=== PATIENT | male | born 1960 | race Caucasian/White ===

== ENCOUNTER → 2016-07-02 | Outpatient (CLI) | payer OTHER ==
[~2016-07-02] MED LIST: ALBUAER2 INH; CHOL2000 PO; CYAN10005 IM; DULO60CA44 PO; HYDR-4079 PO; HYDR-4383 PO; MULT-506 PO; PRENTAB26 PO; TIZA4CAP PO; TRAM-453 PO; VNTHFA/IN INH
[2016-07-02 09:10] LABS: HEMATOCRIT 35.4 % (42-52)
[2016-07-02 09:24] LABS: ESTIMATED AVERAGE GLUCOSE 131 mg/dl; HA1C FLAG Normal (Normal)
[2016-07-02 09:28] LABS: BLOOD UREA NITROGEN 11 mg/dl (7-18); BUN/CREATININE RATIO 14.1 (10-20); CREATININE 0.75 mg/dl (0.60-1.40)
--- NOTE | 2016-07-02 09:31 | DIAGNOSTIC IMAGING REPORT ---
KUB HISTORY: Q62.5 Ureteral [id number] COMPARISON: IVP 10/18/2015. FINDINGS: The bowel gas pattern is unremarkable. There are no dilated loops of small bowel to suggest an obstruction. No renal calculi. No ureteral calculi. Calcifications in the deep pelvis likely represent phleboliths. These are not significantly changed. Suture material left upper quadrant. Degenerative changes within the lumbar spine. Stable 3 mm calcification within the upper pole of the left kidney. No definite right renal calculi. Of note, the right renal shadow is partially obscured by overlying bowel gas. No pneumoperitoneum or pneumatosis. IMPRESSION: Stable left-sided nephrolithiasis. No definite right renal or ureteral calculi. Electronically signed by: Christian Kaye M.D. 07/02/2016 9:29 AM Dictated Date/Time: 07/02/2016 9:26 AM
[2016-07-02 09:38] LABS: PROSTATE SPECIFIC ANTIGEN 0.394 ng/ml (0.000-4.000)
== END | disposition home or self-care (01) ==
LOC: C.RAD 08:49
PROVIDERS: ATTEND Urology
DX: Q62.5 Duplication of ureter (principal); R68.82 Decreased libido; R94.6 Abnormal results of thyroid function studies; R35.8 Other polyuria; N20.0 Calculus of kidney

== ENCOUNTER → 2016-07-08 | Day surgery (SDC) | payer OTHER ==
[2016-07-02 15:00] VITALS: Ht 160 cm; Wt 90.9 kg
[~2016-07-08] VITALS: Ht 160 cm; Wt 90.9 kg
[~2016-07-08] MED LIST changes: -ALBUAER2 INH; -CHOL2000 PO; -CYAN10005 IM; -HYDR-4383 PO; +LIDOCAINE HCL 2% 2 ML VIAL (20MG/ML) ONE; -MULT-506 PO; +PROPOFOL IV EMULSION 10 MG/ML 20 ML VIAL IV ONE
--- NOTE | 2016-07-08 10:29 | Endo History and Physical ---
History & Physical Date of Service: Jul 08, 2016. Chief Complaint: Screening, Hx lung ca Referring Physician: Efraín Sheehan History of Present Illness 56 yo CM who presents for screening colonoscopy. Past Medical History Arthritis, Cancer, Sleep Apnea, COPD, Other Past Surgical History Hx Cardiac Surgery: No Hx Internal Defibrillator: No Hx Pacemaker: No Hx Abdominal Surgery: Yes (GASTRIC BYPASS, HERNIA REPAIR) Hx of Implantable Prosthesis: No Hx Post-Op Nausea and Vomiting: No Hx Cancer Surgery: Yes (RT LOBES X2 REMOVED) Hx Thoracic Surgery: No Hx Orthopedic: Yes (RT TKA, L/R CTR, RT KNEE SCOPES) Hx Urinary Tract Surgery: No Family History Colon CA, Esophogeal CA Social History Smoking Status: Former Smoker Hx Substance Use: No Hx Alcohol Use: No Allergies Coded Allergies: Shellfish (Verified Allergy, Severe, ANAPHYLAXIS, 07/02/16) Oxycodone (Verified Adverse Reaction, Unknown, hallucinations, 07/02/16) Current Medications Reported Home Medications Medications Dose Route/Sig Max Daily Dose Days Date Category Vitamin (Prenat Multivit/Dolores/Iron/Folic Ac) Tab 1 Tab PO DAILY 07/08/16 Reported Ventolin Hfa (Albuterol) 200 Puffs/32111 Mcg Aers 2-4 Puffs INH Q6H PRN 07/02/16 Reported Zanaflex (Tizanidine HCl) 4 Mg Cap 4 Mg PO HS 07/02/16 Reported Cymbalta (Duloxetine Hcl) 60 Mg Cap 1 Cap PO QAM 12/26/15 Reported Ultram (Tramadol Hcl) 50 Mg Tab 50 Mg PO BID PRN 08/01/14 Reported Vital Signs Weight (Kilograms): 90.91 Height (Feet): 5 Height (Inches): 3 Date Time Temp Pulse Resp B/P Pulse Ox O2 Delivery O2 Flow Rate FiO2 07/08/16 09:39 36.9 74 16 126/85 99 Room Air Physical Exam General Appearance: WD/WN, no apparent distress Respiratory/Chest: Auscultation: breath sounds normal Cardiovascular: Heart Auscultation: RRR Abdomen: Bowel Sounds: normal Inspection & Palpation: soft, non-distended, no tenderness, guarding & rebound Assessment and Plan Assessment: 56 yo CM who presents for screening colonoscopy. Plan: Proceed with colonoscopy.
--- NOTE | 2016-07-08 11:01 | GI REPORT ---
Procedure Date: 07/08/2016 10:11 AM Procedure: Colonoscopy Indications: Screening for colorectal malignant neoplasm Medicines: Monitored Anesthesia Care Complications: No immediate complications. Estimated Blood Loss: Estimated blood loss: none. Procedure: Pre-Anesthesia Assessment: - Prior to the procedure, a History and Physical was performed, and patient medications and allergies were reviewed. The patient's tolerance of previous anesthesia was also reviewed. The risks and benefits of the procedure and the sedation options and risks were discussed with the patient. All questions were answered, and informed consent was obtained. Prior Anticoagulants: The patient has taken no previous anticoagulant or antiplatelet agents. ASA Grade Assessment: III - A patient with severe systemic disease. After reviewing the risks and benefits, the patient was deemed in satisfactory condition to undergo the procedure. After I obtained informed consent, the scope was passed under direct vision. Throughout the procedure, the patient's blood pressure, pulse, and oxygen saturations were monitored continuously. The Scope was introduced through the anus and advanced to the cecum, identified by appendiceal orifice and ileocecal valve. The colonoscopy was performed without difficulty. The patient tolerated the procedure well. The quality of the bowel preparation was good. The terminal ileum, ileocecal valve, appendiceal orifice, and rectum were photographed. Findings: A 12 mm polyp was found in the ascending colon. The polyp was sessile. The polyp was removed with a piecemeal technique using a hot snare. Resection was complete, and retrieval was complete. To close a defect after polypectomy, one hemostatic clip was successfully placed (MR conditional). There was no bleeding at the end of the procedure. Multiple small-mouthed diverticula were found in the sigmoid colon. A 4 mm polyp was found in the rectum. The polyp was sessile. The polyp was removed with a hot snare. Resection and retrieval were complete. Impression: - One 12 mm polyp in the ascending colon, removed piecemeal using a hot snare. Resected and retrieved. Clip (MR conditional) was placed. - Diverticulosis in the sigmoid colon. - One 4 mm polyp in the rectum, removed with a hot snare. Resected and retrieved. Recommendation: - Resume previous diet. - Continue present medications. - Repeat colonoscopy for surveillance based on pathology results. - Return to primary care physician as previously scheduled. Nadeem Ho, 07/08/2016 11:00:48 AM This report has been signed electronically. Note Initiated On: 07/08/2016 10:11 AM
--- NOTE | 2016-07-08 11:02 | Discharge Instructions ---
Endoscopy Patient Instructions Date / Procedure(s) Performed Jul 08, 2016. Colonoscopy Allergy Information Coded Allergies: Shellfish (Verified Allergy, Severe, ANAPHYLAXIS, 07/02/16) Oxycodone (Verified Adverse Reaction, Unknown, hallucinations, 07/02/16) Discharge Date / Findings Jul 08, 2016. Colon polyps Diverticulosis Medication Instructions OK to resume all medications today as prescribed. Reported Home Medications Medications Dose Route/Sig Max Daily Dose Days Date Category Vitamin (Prenat Multivit/Keith/Iron/Folic Ac) Tab 1 Tab PO DAILY 07/08/16 Reported Ventolin Hfa (Albuterol) 200 Puffs/46630 Mcg Aers 2-4 Puffs INH Q6H PRN 07/02/16 Reported Zanaflex (Tizanidine HCl) 4 Mg Cap 4 Mg PO HS 07/02/16 Reported Cymbalta (Duloxetine Hcl) 60 Mg Cap 1 Cap PO QAM 12/26/15 Reported Ultram (Tramadol Hcl) 50 Mg Tab 50 Mg PO BID PRN 08/01/14 Reported Provider Instructions Activity Restrictions - No exercising or heavy lifting for 24 hours. - Do not drink alcohol the day of the procedure. - Do not drive a car or operate machinery until the day after the procedure. - Do not make any important decisions or sign important papers in 24 hours after the procedure. Following Day: - Return to full activity which may include returning to work/school. Diet Start your diet with liquids and light foods (jello, soup, juice, toast). Then eat your usual diet if not nauseated. Treatment For Common After Affects For mild abdominal pain, bloating, or excessive gas: - Rest - Eat lightly - Lie on right side Follow-Up Information Follow-up with Efraín Sheehan as scheduled Anesthesia Information What You Should Know You have had a procedure that required some medicine to reduce anxiety and discomfort. This treatment is called moderate sedation. After receiving the treatment, you may be sleepy, but you will be able to breathe on your own. The effects of the treatment may last for several hours. Follow these instructions along with Activity/Diet recommendations noted above: * Do NOT do anything where dizziness or clumsiness would be dangerous. * Rest quietly at home today, then you can be up and about tomorrow. * Have a responsible person stay with you the rest of today. * You may have had an I.V. today. If so, you may take the dressing off later today. Recommendations Call your doctor if: * Trouble breathing * Continuous vomiting for more than 24 hours * Temperature above 101 degrees * Severe abdominal pain or bloating * Pain not relieved by pain medicine ordered * There is increased drainage or redness from any incision * A large amount of rectal bleeding greater than 2-3 tablespoons. (If you had a polyp/s removed or have hemorrhoids, a small amount of blood - from the rectum is to be expected.) * You have any unanswered questions or concerns. IN THE EVENT OF A SERIOUS EMERGENCY, GO TO THE NEAREST EMERGENCY ROOM Your discharge instructions were prepared by provider Nadeem Ho. Patient Instructions Signature Page Efraín Mae Patient (or Guardian) Signature/Date: I have read and understand the instructions given to me by my caregivers. Caregiver/RN/Doctor Signature/Date: The above-named patient and/or guardian has received patient instructions on this date. + Original Patient Signature Page (only) stays with chart. Please make copy for patient.
[2016-07-08 11:35] VITALS: BP 128/68; PULSE 73; O2SAT 100
--- NOTE | 2016-07-08 11:54 | Anesthesiology Progress Note ---
Anesthesia Post Op Note Date & Time Jul 08, 2016 at 11:54 Vital Signs Pain Intensity: 0 Vital Signs Past 12 Hours Date Time Temp Pulse Resp B/P Pulse Ox O2 Delivery O2 Flow Rate FiO2 07/08/16 11:35 73 18 128/68 100 Room Air 07/08/16 11:20 70 18 112/85 100 Room Air 07/08/16 11:05 68 18 116/65 100 Room Air 07/08/16 09:39 36.9 74 16 126/85 99 Room Air Notes Mental Status: alert / awake / arousable, participated in evaluation Pt Amnestic to Procedure: Yes Nausea / Vomiting: adequately controlled Pain: adequately controlled Airway Patency, RR, SpO2: stable & adequate BP & HR: stable & adequate Hydration State: stable & adequate Anesthetic Complications: no major complications apparent
== END | disposition home or self-care (01) ==
LOC: C.GI 09:08
PROVIDERS: ATTEND Internal Medicine
DX: Z12.11 Encounter for screening for malignant neoplasm of colon (principal); D12.2 Benign neoplasm of ascending colon; K62.1 Rectal polyp; K57.30 Diverticulosis of large intestine without perforation or abscess without bleeding; Z85.118 Personal history of other malignant neoplasm of bronchus and lung; Z85.01 Personal history of malignant neoplasm of esophagus; Z80.0 Family history of malignant neoplasm of digestive organs; Z98.84 Bariatric surgery status; G47.30 Sleep apnea, unspecified; Z87.891 Personal history of nicotine dependence; J44.9 Chronic obstructive pulmonary disease, unspecified

== ENCOUNTER → 2016-07-16 | Day surgery (SDC) | payer OTHER ==
[~2016-07-16] VITALS: Ht 162.6 cm; Wt 93.0 kg
[~2016-07-16] MED LIST changes: +COSYNTROPIN INJ 0.25 MCG in SYRINGE 4 ML IV SCH; -LIDOCAINE HCL 2% 2 ML VIAL (20MG/ML) ONE; -PROPOFOL IV EMULSION 10 MG/ML 20 ML VIAL IV ONE
[2016-07-16 07:45] VITALS: BP 132/79; PULSE 72; TEMP 36.8; O2SAT 97; Ht 162.6 cm; Wt 93.0 kg
[2016-07-16 09:12] VITALS: BP 129/77; PULSE 65; TEMP 36.7; O2SAT 98
== END | disposition home or self-care (01) ==
LOC: C.MTU 07:27
PROVIDERS: ATTEND Internal Medicine Endocrinology, Diabetes & Metabolism
DX: R53.83 Other fatigue (principal)

== ENCOUNTER → 2016-10-08 | Outpatient (CLI) | payer OTHER ==
[~2016-10-08] MED LIST changes: -COSYNTROPIN INJ 0.25 MCG in SYRINGE 4 ML IV SCH
--- NOTE | 2016-10-08 11:49 | DIAGNOSTIC IMAGING REPORT ---
LEFT KNEE 1 OR 2 VIEWS ROUTINE CLINICAL HISTORY: Knee pain. COMPARISON: Leg length study July 12, 2013. FINDINGS: Alignment of left knee is anatomic. There is no fracture or joint effusion. Chondrocalcinosis is noted within the menisci. There is minimal joint space narrowing. IMPRESSION: 1. Minimal osteoarthritis of the left knee. 2. Chondrocalcinosis within the menisci. Electronically signed by: Zoran Pierson M.D. 10/08/2016 11:48 AM Dictated Date/Time: 10/08/2016 11:46 AM
--- NOTE | 2016-10-08 11:52 | DIAGNOSTIC IMAGING REPORT ---
RIGHT KNEE 1 OR 2 VIEWS ROUTINE CLINICAL HISTORY: Right knee pain. COMPARISON STUDY: Right knee 11/06/2015. FINDINGS: There is a right total knee arthroplasty. The hardware appears intact. No fracture or dislocation. No abnormal periprosthetic lucency. The bones are osteopenic. No significant knee effusion. Infrapatellar soft tissue swelling. IMPRESSION: 1. Mild nonspecific infrapatellar soft tissue swelling. 2. Right total knee arthroplasty. The hardware appears intact. 3. No fractures. Electronically signed by: Christian Kaye M.D. 10/08/2016 11:51 AM Dictated Date/Time: 10/08/2016 11:50 AM
--- NOTE | 2016-10-08 11:56 | DIAGNOSTIC IMAGING REPORT ---
CHEST 2 VIEWS ROUTINE CLINICAL HISTORY: Lung cancer. COMPARISON STUDY: Chest radiograph February 15, [address] May 28, 2016. FINDINGS: There are stable postoperative findings consistent with a right upper lobectomy. Expected right hemithorax loss is unchanged. There is no consolidation. There is no evidence of pulmonary edema. Cardiac size is normal. Mediastinal contours are unremarkable. No pneumothorax or pleural effusion is present. IMPRESSION: No acute cardiopulmonary findings. Stable postoperative findings consistent with a right upper lobectomy. Electronically signed by: Zoran Pierson M.D. 10/08/2016 11:55 AM Dictated Date/Time: 10/08/2016 11:54 AM
[2016-10-08 12:07] LABS: BASO % 0.5 %; BASO ABS # 0.03 K/uL (0-0.2); COMPLETE YES; HEMATOCRIT 36.4 % (42-52); IG% 0.2 %; LYMPH % 44.9 %; LYMPH ABS # 2.56 K/uL (1.2-3.4); MEAN CELL VOLUME 78.1 fL (80-100); MEAN CORPUSCULAR HEMOGLOBIN 24.5 pg (25-34); MEAN CORPUSCULAR HGB CONC 31.3 g/dl (32-36); MEAN PLATELET VOLUME 8.3 fL (7.4-10.4); MONO % 8.6 %; NEUT % 41.8 %; PLATELET COUNT 336 K/uL (130-400); RED BLOOD COUNT 4.66 M/uL (4.7-6.1)
[2016-10-08 12:16] LABS: ALT/SGPT 25 U/L (12-78); AST/SGOT 19 U/L (15-37); BLOOD UREA NITROGEN 11 mg/dl (7-18); CALCIUM 9.1 mg/dl (8.5-10.1); CARBON DIOXIDE 31 mmol/L (21-32); CHLORIDE 107 mmol/L (98-107); CREATININE 0.69 mg/dl (0.60-1.40); GLUCOSE 100 mg/dl (70-99); POTASSIUM 4.2 mmol/L (3.5-5.1); SODIUM 141 mmol/L (136-145)
[2016-10-08 12:19] LABS: ALB/GLOB RATIO 1.2 (0.9-2); ALKALINE PHOSPHATASE 122 U/L (45-117)
== END | disposition home or self-care (01) ==
LOC: C.RAD 10:25
DX: C34.11 Malignant neoplasm of upper lobe, right bronchus or lung (principal); M23.51 Chronic instability of knee, right knee; M17.10 Unilateral primary osteoarthritis, unspecified knee; E29.1 Testicular hypofunction

== ENCOUNTER → 2016-12-10 | Outpatient (CLI) | payer OTHER ==
--- NOTE | 2016-12-10 09:18 | DIAGNOSTIC IMAGING REPORT ---
CT SCAN OF THE CHEST WITHOUT IV CONTRAST CLINICAL HISTORY: COPD. Pulmonary nodule. Squamous cell carcinoma. COMPARISON STUDY: Chest CT scans dated 05/28/2016 and 05/10/2015. TECHNIQUE: CT scan of the thorax was performed from the thoracic inlet to the upper abdomen. Images are reviewed in the axial, sagittal, and coronal planes. IV contrast was not administered for this examination as per the referring clinician. CT DOSE: 407.66 mGy.cm FINDINGS: Thyroid: Imaged portions of the thyroid gland are normal in size and attenuation. Thoracic aorta: There is moderate atherosclerotic calcification of the thoracic aorta, which is normal in caliber and demonstrates standard 3-vessel arch anatomy. Heart: The heart is normal in size and configuration, and without pericardial effusion. There are coronary artery calcifications. The pulmonary trunk is normal in caliber. Lungs and pleural spaces: Emphysematous change is noted. There are postoperative changes from right upper lobe resection with compensatory hyperinflation of left lung. No lobar consolidation or pleural effusion is identified. The trachea and central airways are clear. No suspicious pulmonary lesion is seen. Mediastinum: There is no mediastinal lymphadenopathy. Katlyn: Not well assessed without IV contrast. Axillae: There is no axillary lymphadenopathy. Upper abdomen: Gynecomastia is noted. There is a moderate hiatal hernia. Postoperative changes are identified involving the stomach. A 1.2 cm left adrenal nodule is consistent with a fat-containing adenoma and unchanged from previous. Skeletal structures: The skeletal structures are osteopenic. No lytic or blastic bony lesions are seen. Degenerative changes and scoliosis are noted in the thoracic spine. Advanced arthritic change is seen in the shoulders. IMPRESSION: 1. Emphysema and postoperative change from right upper lobectomy. 2. There is no evidence of intrathoracic metastatic disease. No concerning pulmonary lesion is identified. 3. There is no airspace consolidation or pleural effusion. 4. Additional findings as above. Electronically signed by: Marky Douglass M.D. 12/10/2016 9:17 AM Dictated Date/Time: 12/10/2016 9:02 AM
[2016-12-10 09:31] LABS: HEMATOCRIT 41.4 % (42-52)
[2016-12-10 09:37] LABS: ESTIMATED AVERAGE GLUCOSE 117 mg/dl; HA1C FLAG Normal (Normal)
[2016-12-10 09:43] LABS: BLOOD UREA NITROGEN 10 mg/dl (7-18); BUN/CREATININE RATIO 11.1 (10-20); CALCIUM 9.2 mg/dl (8.5-10.1); CARBON DIOXIDE 31 mmol/L (21-32); CHLORIDE 106 mmol/L (98-107); CREATININE 0.87 mg/dl (0.60-1.40); GLUCOSE 107 mg/dl (70-99); POTASSIUM 4.2 mmol/L (3.5-5.1); SODIUM 141 mmol/L (136-145)
== END | disposition home or self-care (01) ==
LOC: C.CTS 08:37
PROVIDERS: ATTEND Surgery
DX: C34.90 Malignant neoplasm of unspecified part of unspecified bronchus or lung (principal); R91.1 Solitary pulmonary nodule; R94.6 Abnormal results of thyroid function studies; R73.03 Prediabetes

== ENCOUNTER → 2017-04-28 | Outpatient (CLI) | payer OTHER ==
[2017-04-28 15:43] LABS: BASO % 0.4 %; BASO ABS # 0.03 K/uL (0-0.2); COMPLETE YES; EOS % 4.1 %; IG% 0.1 %; LYMPH % 39.7 %; LYMPH ABS # 2.84 K/uL (1.2-3.4); MEAN CELL VOLUME 86.6 fL (80-100); MEAN CORPUSCULAR HEMOGLOBIN 29.2 pg (25-34); MEAN CORPUSCULAR HGB CONC 33.8 g/dl (32-36); MEAN PLATELET VOLUME 8.3 fL (7.4-10.4); MONO % 8.2 %; NEUT % 47.5 %; PLATELET COUNT 252 K/uL (130-400); RED BLOOD COUNT 4.62 M/uL (4.7-6.1); WHITE BLOOD COUNT 7.16 K/uL (4.8-10.8)
--- NOTE | 2017-04-28 15:43 | DIAGNOSTIC IMAGING REPORT ---
CHEST 2 VIEWS ROUTINE CLINICAL HISTORY: 57 years-old Male presenting with LUNG CANCER. TECHNIQUE: PA and lateral views of the chest were obtained. COMPARISON: CT from 12/10/2016 and chest x-ray from 10/08/2016. FINDINGS: Cardiomediastinal silhouette normal. Postsurgical changes of right upper lobectomy evidenced by architectural distortion and volume loss of the right lung. Lungs and pleural spaces clear. Degenerative changes of the right glenohumeral joint. Upper abdomen normal. IMPRESSION: 1. No acute cardiopulmonary disease. Stable post surgical changes of the right lung. Electronically signed by: Dhruv Chacon M.D. 04/28/2017 3:42 PM Dictated Date/Time: 04/28/2017 3:40 PM
[2017-04-28 16:14] LABS: ALT/SGPT 27 U/L (12-78); AST/SGOT 23 U/L (15-37); BLOOD UREA NITROGEN 9 mg/dl (7-18); BUN/CREATININE RATIO 11.1 (10-20); CALCIUM 8.9 mg/dl (8.5-10.1); CARBON DIOXIDE 28 mmol/L (21-32); CHLORIDE 105 mmol/L (98-107); CREATININE 0.79 mg/dl (0.60-1.40); GLUCOSE 83 mg/dl (70-99); POTASSIUM 3.8 mmol/L (3.5-5.1); SODIUM 140 mmol/L (136-145)
[2017-04-28 16:19] LABS: ALB/GLOB RATIO 1.2 (0.9-2); ALKALINE PHOSPHATASE 123 U/L (45-117); FERRITIN 30.3 ng/ml (8.0-388.0)
== END | disposition home or self-care (01) ==
LOC: C.RAD 14:49
PROVIDERS: ATTEND Internal Medicine Hematology & Oncology
DX: C34.11 Malignant neoplasm of upper lobe, right bronchus or lung (principal); D50.9 Iron deficiency anemia, unspecified

== ENCOUNTER → 2017-06-09 | Outpatient (CLI) | payer OTHER ==
[~2017-06-09] MED LIST changes: +CHOL100010 PO; +CLB/200 PO
--- NOTE | 2017-06-09 16:02 | DIAGNOSTIC IMAGING REPORT ---
(CHEST) THORAX WITHOUT CLINICAL HISTORY: 57 years-old Male presenting with PULMONARY NODULE,SQUAMOUS CELL CARCINMOA OF LUNG. TECHNIQUE: Multidetector CT imaging of the chest was performed without the use of intravenous contrast. IV contrast: None. A dose lowering technique was used consistent with the principles of ALARA (as low as reasonably achievable). COMPARISON: 12/10/2016. CT DOSE (mGy.cm): The estimated cumulative dose is 429.26 mGy.cm. FINDINGS: Database Consultant topogram: Unremarkable. On soft tissue windows, normal thyroid. Bilateral gynecomastia. No axillary, supraclavicular, or mediastinal lymphadenopathy. Evaluation of the chantell limited without intravenous contrast. Atherosclerosis of the aorta. Coronary artery calcification. Normal heart size. No pericardial or pleural effusion. Postsurgical changes of Josephine-en-Y gastric bypass suspected. Nodularity of the left adrenal gland unchanged. On lung windows, postsurgical changes of right upper and middle lobectomies. Expansion of the right lower lobe. No pulmonary nodule or infiltrate. Airways patent. On bone windows, degenerative changes of the spine. Degenerative changes of the bilateral glenohumeral joints. IMPRESSION: 1. No evidence of intrathoracic metastatic disease. 2. Postsurgical changes of right upper and middle lobectomies. Electronically signed by: Dhruv Chacon M.D. 06/09/2017 4:01 PM Dictated Date/Time: 06/09/2017 3:54 PM
== END | disposition home or self-care (01) ==
LOC: C.CTS 15:37
PROVIDERS: ATTEND Surgery
DX: R91.1 Solitary pulmonary nodule (principal); C34.90 Malignant neoplasm of unspecified part of unspecified bronchus or lung; Z90.2 Acquired absence of lung [part of]

== ENCOUNTER → 2017-07-16 | Day surgery (SDC) | payer OTHER ==
[2017-07-09 11:04] VITALS: Ht 160 cm; Wt 88.6 kg
[~2017-07-16] VITALS: Ht 160 cm; Wt 88.6 kg
[~2017-07-16] MED LIST changes: -HYDR-4079 PO; +LIDOCAINE HCL 2% 2 ML VIAL (20MG/ML) ONE; +MIDAZOLAM HCL 1 MG/ML 2ML VIAL ONE; +ONDANSETRON INJ 2 MG/ML 2 ML VIAL ONE; +PROPOFOL IV EMULSION 10 MG/ML 20 ML VIAL IV ONE; +SODIUM CHLORIDE 0.9% 500ML 500 ML IV ONE; -TIZA4CAP PO
--- NOTE | 2017-07-16 09:18 | Endo History and Physical ---
History & Physical Date of Service: Jul 16, 2017. Chief Complaint: History of polyps Referring Physician: Alex Preciado PA-C History of Present Illness 57 yo CM who presents for colonoscopy secondary to history of colon polyps. Past Medical History Arthritis, Cancer, Sleep Apnea, COPD, Other Past Surgical History Hx Cardiac Surgery: No Hx Internal Defibrillator: No Hx Pacemaker: No Hx Abdominal Surgery: Yes (GASTRIC BYPASS, HERNIA REPAIR) Hx of Implantable Prosthesis: No Hx Post-Op Nausea and Vomiting: No Hx Cancer Surgery: Yes (RT LOBECTOMY X2) Hx Thoracic Surgery: No Hx Orthopedic: Yes (RT TKA, LT/RT CTR, RT KNEE SCOPE) Hx Urinary Tract Surgery: No Family History Colon CA, Esophogeal CA Social History Smoking Status: Former Smoker Hx Substance Use: No Hx Alcohol Use: No Allergies Coded Allergies: Shellfish (Verified Allergy, Severe, ANAPHYLAXIS, 07/09/17) Uncoded Allergies: VENISON (Allergy, Unknown, ANAPHYLAXIS, 07/09/17) Current Medications Reported Home Medications Medications Dose Route/Sig Max Daily Dose Days Date Category Vitamin D (Cholecalciferol) 1,000 Unit Tab 1 Tab PO DAILY 07/09/17 Reported CeleBREX (Celecoxib) 200 Mg Cap 200 Mg PO QAM 07/09/17 Reported Vitamin (Prenat Multivit/Newspaper Managing Editor/Iron/Folic Ac) Tab 1 Tab PO DAILY 07/08/16 Reported Ventolin Hfa (Albuterol) 200 Puffs/44830 Mcg Aers 2-4 Puffs INH Q6H PRN 07/02/16 Reported Cymbalta (Duloxetine Hcl) 60 Mg Cap 1 Cap PO QAM 12/26/15 Reported Ultram (Tramadol Hcl) 50 Mg Tab 50 Mg PO BID 08/01/14 Reported Vital Signs Weight (Kilograms): 88.64 Height (Feet): 5 Height (Inches): 3 Date Time Temp Pulse Resp B/P (MAP) Pulse Ox O2 Delivery O2 Flow Rate FiO2 07/16/17 08:57 36.9 76 18 145/85 (105) 96 Room Air Physical Exam General Appearance: WD/WN, no apparent distress Respiratory/Chest: Auscultation: breath sounds normal Cardiovascular: Heart Auscultation: RRR Abdomen: Bowel Sounds: normal Inspection & Palpation: soft, non-distended, no tenderness, guarding & rebound Assessment and Plan Assessment: 57 yo CM who presents for colonoscopy secondary to history of colon polyps. Plan: Proceed with colonoscopy.
--- NOTE | 2017-07-16 10:16 | Discharge Instructions ---
Endoscopy Patient Instructions Date / Procedure(s) Performed Jul 16, 2017. Colonoscopy Allergy Information Coded Allergies: Shellfish (Verified Allergy, Severe, ANAPHYLAXIS, 07/09/17) Uncoded Allergies: VENISON (Allergy, Unknown, ANAPHYLAXIS, 07/09/17) Discharge Date / Findings Jul 16, 2017. Diverticulosis Internal hemorrhoids Medication Instructions OK to resume all medications today as prescribed Reported Home Medications Medications Dose Route/Sig Max Daily Dose Days Date Category Vitamin D (Cholecalciferol) 1,000 Unit Tab 1 Tab PO DAILY 07/09/17 Reported CeleBREX (Celecoxib) 200 Mg Cap 200 Mg PO QAM 07/09/17 Reported Vitamin (Prenat Multivit/Mclennan/Iron/Folic Ac) Tab 1 Tab PO DAILY 07/08/16 Reported Ventolin Hfa (Albuterol) 200 Puffs/44659 Mcg Aers 2-4 Puffs INH Q6H PRN 07/02/16 Reported Cymbalta (Duloxetine Hcl) 60 Mg Cap 1 Cap PO QAM 12/26/15 Reported Ultram (Tramadol Hcl) 50 Mg Tab 50 Mg PO BID 08/01/14 Reported Provider Instructions Activity Restrictions - No exercising or heavy lifting for 24 hours. - Do not drink alcohol the day of the procedure. - Do not drive a car or operate machinery until the day after the procedure. - Do not make any important decisions or sign important papers in 24 hours after the procedure. Following Day: - Return to full activity which may include returning to work/school. Diet Start your diet with liquids and light foods (jello, soup, juice, toast). Then eat your usual diet if not nauseated. Treatment For Common After Affects For mild abdominal pain, bloating, or excessive gas: - Rest - Eat lightly - Lie on right side Follow-Up Information Follow-up with Alex Preciado PA-C as scheduled Anesthesia Information What You Should Know You have had a procedure that required some medicine to reduce anxiety and discomfort. This treatment is called moderate sedation. After receiving the treatment, you may be sleepy, but you will be able to breathe on your own. The effects of the treatment may last for several hours. Follow these instructions along with Activity/Diet recommendations noted above: * Do NOT do anything where dizziness or clumsiness would be dangerous. * Rest quietly at home today, then you can be up and about tomorrow. * Have a responsible person stay with you the rest of today. * You may have had an I.V. today. If so, you may take the dressing off later today. Recommendations Call your doctor if: * Trouble breathing * Continuous vomiting for more than 24 hours * Temperature above 101 degrees * Severe abdominal pain or bloating * Pain not relieved by pain medicine ordered * There is increased drainage or redness from any incision * A large amount of rectal bleeding greater than 2-3 tablespoons. (If you had a polyp/s removed or have hemorrhoids, a small amount of blood - from the rectum is to be expected.) * You have any unanswered questions or concerns. IN THE EVENT OF A SERIOUS EMERGENCY, GO TO THE NEAREST EMERGENCY ROOM Your discharge instructions were prepared by provider Nadeem Ho. Patient Instructions Signature Page Efraín Mae Patient (or Guardian) Signature/Date: I have read and understand the instructions given to me by my caregivers. Caregiver/RN/Doctor Signature/Date: The above-named patient and/or guardian has received patient instructions on this date. + Original Patient Signature Page (only) stays with chart. Please make copy for patient.
--- NOTE | 2017-07-16 10:27 | GI REPORT ---
Procedure Date: 07/16/2017 9:21 AM THIS REPORT HAS BEEN AMENDED Addendum Number: 1 Addendum Date: 07/16/2017 10:31:03 AM No specimens were obtained during this procedure, and therefore, no pathology is pending. Repeat colonoscopy in 5 years. Procedure: Colonoscopy Indications: High risk colon cancer surveillance: Personal history of colonic polyps Medicines: Monitored Anesthesia Care Complications: No immediate complications. Estimated Blood Loss: Estimated blood loss: none. Procedure: Pre-Anesthesia Assessment: - Prior to the procedure, a History and Physical was performed, and patient medications and allergies were reviewed. The patient's tolerance of previous anesthesia was also reviewed. The risks and benefits of the procedure and the sedation options and risks were discussed with the patient. All questions were answered, and informed consent was obtained. Prior Anticoagulants: The patient has taken no previous anticoagulant or antiplatelet agents. ASA Grade Assessment: II - A patient with mild systemic disease. After reviewing the risks and benefits, the patient was deemed in satisfactory condition to undergo the procedure. After I obtained informed consent, the scope was passed under direct vision. Throughout the procedure, the patient's blood pressure, pulse, and oxygen saturations were monitored continuously. The scope was introduced through the anus and advanced to the terminal ileum. The colonoscopy was performed without difficulty. The patient tolerated the procedure well. The quality of the bowel preparation was good. The terminal ileum, ileocecal valve, appendiceal orifice, and rectum were photographed. Findings: The perianal and digital rectal examinations were normal. Multiple small-mouthed diverticula were found in the sigmoid colon. Non-bleeding internal hemorrhoids were found during retroflexion. The hemorrhoids were small. Impression: - Diverticulosis in the sigmoid colon. - Non-bleeding internal hemorrhoids. - No specimens collected. Recommendation: - Resume previous diet. - Continue present medications. - Repeat colonoscopy for surveillance based on pathology results. - Return to primary care physician as previously scheduled. Nadeem Gilberto Ho DO 07/16/2017 10:26:55 AM This report has been signed electronically. Note Initiated On: 07/16/2017 9:21 AM I attest to the content of the Intraoperative Record and orders documented therein, exceptions below Nadeem Macias DO Vic 07/16/2017 10:31:35 AM This report has been signed electronically.
--- NOTE | 2017-07-16 10:35 | Anesthesiology Progress Note ---
Anesthesia Post Op Note Date & Time Jul 16, 2017 at 10:35 Vital Signs Pain Intensity: 0 Vital Signs Past 12 Hours Date Time Temp Pulse Resp B/P (MAP) Pulse Ox O2 Delivery O2 Flow Rate FiO2 07/16/17 10:31 78 18 114/75 (88) 95 Room Air 07/16/17 10:16 65 18 123/76 (92) 99 Room Air 07/16/17 08:57 36.9 76 18 145/85 (105) 96 Room Air Notes Mental Status: alert / awake / arousable, participated in evaluation Pt Amnestic to Procedure: Yes Nausea / Vomiting: adequately controlled Pain: adequately controlled Airway Patency, RR, SpO2: stable & adequate BP & HR: stable & adequate Hydration State: stable & adequate Anesthetic Complications: no major complications apparent
[2017-07-16 10:46] VITALS: BP 130/82; PULSE 67; O2SAT 99
== END | disposition home or self-care (01) ==
LOC: C.GI 08:31
PROVIDERS: ATTEND Internal Medicine
DX: Z12.11 Encounter for screening for malignant neoplasm of colon (principal); K57.30 Diverticulosis of large intestine without perforation or abscess without bleeding; Z86.010 Personal history of colon polyps; J44.9 Chronic obstructive pulmonary disease, unspecified; G47.33 Obstructive sleep apnea (adult) (pediatric); Z98.84 Bariatric surgery status; Z87.891 Personal history of nicotine dependence; Z96.651 Presence of right artificial knee joint; Z80.0 Family history of malignant neoplasm of digestive organs

== ENCOUNTER → 2017-07-26 | Outpatient (CLI) | payer OTHER ==
[~2017-07-26] MED LIST changes: -LIDOCAINE HCL 2% 2 ML VIAL (20MG/ML) ONE; -MIDAZOLAM HCL 1 MG/ML 2ML VIAL ONE; -ONDANSETRON INJ 2 MG/ML 2 ML VIAL ONE; -PROPOFOL IV EMULSION 10 MG/ML 20 ML VIAL IV ONE; -SODIUM CHLORIDE 0.9% 500ML 500 ML IV ONE
--- NOTE | 2017-07-26 15:22 | DIAGNOSTIC IMAGING REPORT ---
CHEST 2 VIEWS ROUTINE CLINICAL HISTORY: PRIMARY CANCER OF LUNG C34.11 lung carcinoma COMPARISON STUDY: 04/28/2017 FINDINGS: Stable postoperative changes right hemithorax. Left lung remains clear. No evidence for cardiac enlargement. No acute infiltrate or significant nodular pathology. IMPRESSION: Stable postoperative appearance to the right hemithorax. No acute process. No change from the prior study. The above report was generated using voice recognition software. It may contain grammatical, syntax or spelling errors. Electronically signed by: Masoud Glover M.D. 07/26/2017 3:21 PM Dictated Date/Time: 07/26/2017 3:20 PM
== END | disposition home or self-care (01) ==
LOC: C.RAD 14:58
PROVIDERS: ATTEND Internal Medicine Hematology & Oncology
DX: C34.11 Malignant neoplasm of upper lobe, right bronchus or lung (principal)

== ENCOUNTER 2018-09-23 05:54 | Inpatient (IN) ==
--- NOTE | 2018-07-26 11:05 | PAT Medication Instructions ---
Medication Instructions Date of Service July 26, 2018 Home Medications acetaminophen [Arthritis Pain Reliever] 1,300 mg PO HS albuterol sulfate [Ventolin HFA] 2 puff INHALATION Q6H PRN cholecalciferol (vitamin D3) 2,000 unit PO QAM hydrocodone-acetaminophen 1 tab PO BID PRN tramadol 50 mg PO Q4H PRN DO NOT take the morning of surgery cholecalciferol (vitamin D3) 2,000 unit PO QAM Take morning of surgery With a small sip of water, OTHERWISE NOTHING TO EAT OR DRINK AFTER MIDNIGHT: albuterol sulfate [Ventolin HFA] 2 puff INHALATION Q6H PRN (if needed, and bring with you to the hospital) hydrocodone-acetaminophen 1 tab PO BID PRN (if needed, may be taken up to four hours before surgery) tramadol 50 mg PO Q4H PRN (if needed, may be taken up to four hours before surgery) Take evening before surgery acetaminophen [Arthritis Pain Reliever] 1,300 mg PO HS hydrocodone-acetaminophen 1 tab PO BID PRN (if needed) tramadol 50 mg PO Q4H PRN (if needed) Other Notes If you have any questions please call us at [phone] or [phone] or [phone] or [phone]
--- NOTE | 2018-08-29 14:39 | Anesthesiology Consultation ---
Date of Service August 29, 2018 Assessment & Plan (1) Encounter for pre-operative examination: Chart Review Chart Review: Acceptable Risk for Surgery and Patient seen in Pre Admission Testing Teaching & Discussion Instructed NPO after midnight before surgery, except medications with 15 cc of water. Medication instructions provided according to the PAT guidelines. History Surgery Operation Date: 09/23/18 08:50 Proposed Procedures p Right Reverse Total Shoulder Arthroplasty - Anthony Beasley, Height/Weight Height: 5 ft 4 in Weight: 95.8 kg Allergies Allergy/AdvReac Type Severity Reaction Status Date / Time No Known Allergies Allergy Verified 07/22/18 14:52 Medications Home Medications Medication Instructions Recorded Confirmed Last Taken acetaminophen [Arthritis Pain 1,300 mg PO HS 07/22/18 07/22/18 Unknown Reliever] albuterol sulfate [Ventolin HFA] 2 puff INHALATION Q6H PRN 07/22/18 07/22/18 Unknown cholecalciferol (vitamin D3) 2,000 unit PO QAM 07/22/18 07/22/18 Unknown [Vitamin D3] hydrocodone-acetaminophen 1 tab PO BID PRN 07/22/18 07/22/18 Unknown tramadol 50 mg PO Q4H PRN 07/22/18 07/22/18 Unknown Past Medical History Medical History Chronic obstructive pulmonary disease Albuterol usually at least once daily DJD (degenerative joint disease) H/O diabetes mellitus was treated for prior to wt loss with gastric bypass History of kidney stones Hx of cancer of lung s/p middle and upper lobectomy 07/23/2015, + chemo. Hx of sleep apnea Had UPPP - no longer uses cpap Obesity Past Surgical History Surgical History History of carpal tunnel release of both wrists History of lobectomy of lung removal of upper and middle lobes right side - [facility] - 07/2015 History of total right knee replacement Hx of gastric bypass [address] [facility] Hx of hernia repair abdominal Past Anesthesia History No Hx of Anesthesia Complications and No Family Hx of Anesthesia Complications Pt has h/o awareness with 2012 TKA-- "MODERATELY DIFFICULT PLACEMENT" noted on record for SAB. Femoral block without issues. History of PONV No Motion Sickness Screening History of Motion Sickness: No Social History Smoking Status: Former smoker (SMOKED FOR 38 YEARS) tobacco type: e-cigarettes (Now vapes daily) Smoking cigarettes per day: 40 Smoking End Date: 07/2015 Hx Alcohol Use: Yes alcohol intake frequency: holidays/special occasions only Hx Substance Use: No Exercise / Class Metabolic Activity II 4-5 Yardwork/Stairs/Walk up hill (Denies CP and SOB with walking up a hill, yardwork.) Review of Systems Pt denies any recent chest pain, shortness of breath, palpitations, cough, fever or URI. Physical Exam Vital Signs BP: 150/96 P: 71bpm SPO2: 98% RA T: 97.7 F R: 16 ENMT Mouth: + dentures and + edentulous Thyromental Distance: > or= 3.5 Finger Breadths (4) Mallampati Class: I Uvula and tonsils surgically absent. Neck + short neck and + facial hair (stubble/short hill); neck extension not limited Respiratory normal respiratory effort Auscultation: lungs clear to auscultation bilaterally, + breath sounds absent (RUL) and + bronchovesicular breath sounds (b/l) Cardiovascular Rate/Rhythm: regular rate and regular rhythm (with frequent ectopic beats) Heart Sounds: no murmur Vessels: no carotid bruit Testing Electrocardiogram Date: 11/26/17 Possible ectopic atrial rhythm at 61 bpm with PACs. Left axis deviation. Right bundle branch block with left anterior fascicular block. Per PCP note: "New right bundle branch block. Patient symptomatic with palpitations and dizziness." Chest X-Ray Date: 08/01/18 FINDINGS: The heart is normal in size. No pleural or pericardial effusions. Prior right upper and middle lobectomy. Linear areas of scarring within the residual right lung persist. Stable 3 mm nodule within the lingula on image 196. This is likely benign. No new pulmonary nodules identified. Prior right-sided postthoracotomy changes. Mild emphysema. Prior gastric bypass. Symmetric gynecomastia. Degenerative changes within the shoulders. No suspicious lytic or blastic osseous lesions. No mediastinal or hilar lymphadenopathy. IMPRESSION: Status post right upper and middle lobectomy. No evidence for recurrent or metastatic disease within the chest. Stress Test Date: 01/28/18 Type: exercise Resting EF: 70% Negative exercise stress echocardiogram and ekg for ischemia at 100% MPHR. The patient complained of no exercise-induced chest pain. The baseline echocardiogram notes normal LV function. Laboratory Results Blood Type B Positive 08/29/18 14:46 Antibody Screen NEGATIVE 08/29/18 14:46 PT 10.4 Seconds (9.0-12.0) 08/29/18 14:46 INR 1.0 (0.9-1.1) 08/29/18 14:46 APTT 23.9 Seconds (21.0-31.0) 08/29/18 14:46 Laboratory Tests 08/01/18 08/01/18 12:30 12:30 WBC 7.13 Hgb 14.9 Hct 44.3 Plt Count 247 Sodium 141 Potassium 4.0 Chloride 106 Carbon Dioxide 29 BUN 11 Creatinine 0.77 Glucose 87
--- NOTE | 2018-08-29 14:42 | PAT Medication Instructions ---
Medication Instructions Date of Service August 29, 2018 Home Medications acetaminophen [Arthritis Pain] 1,300 mg PO HS albuterol sulfate [Ventolin HFA] 2 puff INHALATION Q6H PRN cholecalciferol (vitamin D3) 2,000 unit PO QAM hydrocodone-acetaminophen 1 tab PO BID PRN tramadol 50 mg PO Q4H PRN DO NOT take the morning of surgery cholecalciferol (vitamin D3) 2,000 unit PO QAM Take morning of surgery With a small sip of water, OTHERWISE NOTHING TO EAT OR DRINK AFTER MIDNIGHT: albuterol sulfate [Ventolin HFA] 2 puff INHALATION Q6H PRN (if needed, and bring with you to the hospital) hydrocodone-acetaminophen 1 tab PO BID PRN (if needed, may be taken up to four hours before surgery) tramadol 50 mg PO Q4H PRN (if needed, may be taken up to four hours before surgery) Take evening before surgery acetaminophen [Arthritis Pain] 1,300 mg PO HS albuterol sulfate [Ventolin HFA] 2 puff INHALATION Q6H PRN (if needed) hydrocodone-acetaminophen 1 tab PO BID PRN (if needed) tramadol 50 mg PO Q4H PRN (if needed) Other Notes If you have any questions please call us at [phone] or [phone] or [phone] or [phone]
[2018-08-29 15:27] LABS: Partial Thromboplastin Ratio 0.9; Partial Thromboplastin Time 23.9 Seconds (21.0-31.0); Prothrombin Time 10.4 Seconds (9.0-12.0)
--- NOTE | 2018-09-21 07:30 | History & Physical Report ---
Date of Service September 21, 2018 Assessment & Plan (1) Primary osteoarthritis of right shoulder: We will proceed with a right total shoulder arthroplasty. Postoperatively he will be placed in an arm sling and kept overnight for postoperative medical management. He plans to use outpatient physical therapy upon discharge. Present on Admission?: Yes History of Present Illness Chief Complaint: Primary osteoarthritis of the right shoulder Primary Care Provider: Alex Santoyo Ozzy Kenny is a pleasant 58-year-old male who is been dealing with chronic increasing right shoulder pain for several years. I have given him multiple glenohumeral joint injections but unfortunately the injections are not helping anymore. X-rays and clinical examination have been diagnostic for advanced osteoarthritis of the right shoulder. After failing conservative treatment, he is elected to proceed with a right total shoulder arthroplasty. Allergies Allergy/AdvReac Type Severity Reaction Status Date / Time No Known Allergies Allergy Verified 09/20/18 14:30 Home Medications Home Medications Medication Instructions Recorded Confirmed Type acetaminophen [Arthritis Pain 1,300 mg PO HS 07/22/18 09/20/18 History Reliever] albuterol sulfate [Ventolin HFA] 2 puff INHALATION Q6H PRN 07/22/18 09/20/18 History cholecalciferol (vitamin D3) 2,000 unit PO QAM 07/22/18 09/20/18 History [Vitamin D3] hydrocodone-acetaminophen 1 tab PO BID PRN 07/22/18 09/20/18 History Cbd Oil 1 tab PO BID 09/20/18 09/20/18 History Inhaler 1 puff INHALATION QAM 09/20/18 09/20/18 History Past Med/Surg History Medical History Chronic obstructive pulmonary disease Albuterol usually at least once daily DJD (degenerative joint disease) H/O diabetes mellitus was treated for prior to wt loss with gastric bypass History of kidney stones Hx of cancer of lung s/p middle and upper lobectomy 07/23/2015, + chemo. Hx of sleep apnea Had UPPP - no longer uses cpap Obesity Surgical History History of carpal tunnel release of both wrists History of lobectomy of lung removal of upper and middle lobes right side - [facility] - 07/2015 History of total right knee replacement Hx of gastric bypass 2000 [facility] Hx of hernia repair abdominal Family History Mother Family history of diabetes mellitus Uncle Family hx of colon cancer Social History Preferred Language: Bruneian Communication Ability: Effective Malt Loader Required: No Beliefs That Will Affect Care: None Current Living Situation: Family Current Living Situation Comment: LIVES WITH MOTHER Other Information That Helps Us Care for You: No Feels Safe at Home: Yes Safety Concerns: Feels Safe At This Time Smoking Status: Current every day smoker Hx Alcohol Use: Yes Hx Substance Use: No Review of Systems All systems reviewed & are unremarkable except as noted in HPI & below Physical Exam Constitutional: WD/WN, vitals as above Eyes: PERRL, conjunctivae normal, anicteric sclerae ENMT: external ear and nose normal, oropharynx normal Neck: trachea midline, no thyromegaly Respiratory: normal respiratory effort Cardiovascular: RRR, no murmur, no edema Gastrointestinal (Abdomen): normal bowel sounds, soft, nontender, no hepatosplenomegaly Musculoskeletal: Physical examination of the right shoulder reveals decreased range of motion and crepitis throughout. There is good strength with full can testing and external rotation. There is tenderness palpation along the anterior glenohumeral joint line. The right upper extremity is neurovascularly intact. Psychiatric: A+Ox3, euthymic affect Results & Data Diagnostic Findings Radiographs of the right shoulder show osteoarthritis of the glenohumeral joint. There is joint space narrowing, osteophyte formation, and [id number] articulation.
[2018-09-23] MEDS ORDERED: LR 15ML/HR IV SCH (06:00)
[2018-09-23] MEDS ORDERED: ACETAMINOPHEN 500 MG TAB PO SCH (06:00)
[2018-09-23] MEDS ORDERED: LR 60ML/HR IV SCH (06:00)
[2018-09-23] MEDS ORDERED: FAMOTIDINE 20 MG TAB PO SCH (06:00)
[2018-09-23] MEDS ORDERED: TRANEXAMIC ACID 1,000 MG **IV Pre-op IV SCH (06:00)
[2018-09-23] MEDS ORDERED: CEFAZOLIN 2000MG 2,000 MG/15 ML SYR IV SCH (06:00)
[2018-09-23] MEDS ORDERED: GABAPENTIN 300 MG x 2 PO SCH (06:00)
[2018-09-23] MEDS ORDERED: ROPIVACAINE 0.5% HCL/PF 150 MG, BUPIVACAINE 0.5% MPF 30 ML, EPINEPHrine 30MG/30ML (OR U... INFIL SCH (06:00)
[2018-09-23] MEDS ORDERED: BUPIVACAINE 0.5 % 5 MG/1 ML PF 10ML VIAL ONE (06:10)
[2018-09-23] MEDS ORDERED: TRANEXAMIC ACID 1,000 MG **IV Intra-op IV SCH (06:30)
[2018-09-23] MEDS ORDERED: PROPOFOL IV EMULSION 10 MG/ML 20 ML VIAL IV ONE (06:42)
[2018-09-23] MEDS ORDERED: LIDOCAINE HCL 2% 2 ML VIAL/AMP(20MG/ML) INFIL ONE (06:42)
[2018-09-23] MEDS ORDERED: ROCURONIUM BROMIDE 10 MG/ML 5 ML VIAL ONE (06:42)
[2018-09-23] MEDS ORDERED: DEXAMETHASONE SOD INJ 4 MG/ML VIAL ONE (06:42)
[2018-09-23] MEDS ORDERED: ONDANSETRON INJ 2 MG/ML 2 ML VIAL ONE (06:42)
[2018-09-23] MEDS ORDERED: MIDAZOLAM HCL 1 MG/ML 2ML VIAL ONE (06:43)
[2018-09-23] MEDS ORDERED: fentaNYL citrate 100 MCG/2 ML VIAL ONE (06:43)
--- NOTE | 2018-09-23 06:49 | History & Physical Bridge Note ---
Date of Service September 23, 2018 History & Physical Bridge Note I have examined the patient, reviewed the History & Physical and in the interval since the performance of the History & Physical I have noted the following changes of clinical significance: no changes noted
[2018-09-23] MEDS ORDERED: ORTHO JOINT ANESTHETIC ONE (06:56)
[2018-09-23] MEDS ORDERED: POVIDONE-IODINE OP SOLN 30 ML BTL ONE (06:57)
[2018-09-23] MEDS ORDERED: BUPIVACAINE LIPOSOME 1.3% 266 MG/20 ML VIAL ONE (08:01)
[2018-09-23] MEDS ORDERED: ATROPINE SULFATE 0.1 MG/ML 10ML SYR IV PRN (08:04)
[2018-09-23] MEDS ORDERED: HYDROmorphone INJ 1 MG/ML SYRINGE IV PRN (08:04)
[2018-09-23] MEDS ORDERED: KETOROLAC 30 MG/ML VIAL IV PRN (08:04)
[2018-09-23] MEDS ORDERED: ONDANSETRON INJ 2 MG/ML 2 ML VIAL IV PRN ×2 (08:04→11:53)
[2018-09-23] MEDS ORDERED: ePHEDrine sulfate 50 MG/ML SYR ONE (09:09)
[2018-09-23] MEDS ORDERED: NEOSTIGMINE METHYLSULFATE 5 MG/5 ML SYR ONE (10:20)
[2018-09-23] MEDS ORDERED: GLYCOPYRROLATE 0.2 MG/ML VIAL ONE (10:20)
--- NOTE | 2018-09-23 10:27 | Operative Report ---
Post Operative Report Pre & Post Diagnosis Operation Date: 09/23/18 08:30 Pre-Op Diagnosis: Primary Osteoarthritis of Right Shoulder Post-Op Diagnosis: Primary Osteoarthritis of Right Shoulder Procedure Operation Date: 09/23/18 08:30 Actual Procedures p Right Total Shoulder Arthroplasty - Anthony Beasley DO Surgeon Anthony Beasley DO Textile Knitter Anthony Geiger PAC Estimated Blood Loss 150 Findings Consistent with Post-Op Diagnosis Specimens Right humeral head Complications none Disposition Disposition: Recovery Room Indications Efraín is a pleasant 58-year-old male who is been dealing with chronic increasing right shoulder pain. X-rays and clinical examination have been d iagnostic for primary osteoarthritis of the right shoulder. After failing conservative treatment, he elected to proceed with a right total shoulder arthroplasty. Description of Procedure Implants used: I used a Biomet Comprehensive total shoulder arthroplasty system with a size 16 press fit mini humeral stem, a size 46 x 18 eccentric humeral head, and a medium size glenoid with a Regenerex peg. The glenoid was cemented in place with Palacos G cement. The patient arrived at [facility] for the above procedure. There w ere seen in the preoperative holding area and the operative extremity was identified and signed. They were given a preoperative antibiotic and an interscalene nerve block. They were taken back to the operating room, laid on table in supine position, and put under general anesthesia. They were then put into the beachchair position. The shoulder was then prepped and draped in sterile fashion. A timeout was done and the patient in the operative extremity was properly identified. A deltopectoral approach was used. Dissection was taken down through the fascia and the deltoid was retracted laterally and the conjoined tendon was retracted medially. The anterior shoulder was exposed. The long head of the biceps tendon was tenodesed to the upper border of the pectoralis major. The subscap ularis was then released off the lesser tuberosity with a centimeter of cuff tissue remaining. The inferior capsule was released and the humeral head was dislocated. The rotator cuff was inspected and intact. A canal finding reamer was sent down the center of the humeral canal. Sequential reaming up to a size 16 reamer was done. Offset reamer a proximal humeral resection guide was placed. The proximal humerus was resected at 135 of inclination and 30 of retroversion. Inferior osteophytes were then removed and the glenoid was exposed. Time was spent doing an appropriate labral release. The glenoid measured to be a size medium. A Biomet signature guide was then attached onto the anterior rim of the glenoid. A 3.2 mm Steinmann pin was then placed in the total shoulder arthroplasty hole. The glenoid was then reamed with a propeller reamer. The central post cutter was then used to prepare for the central boss. The cannulated peripheral peg drill guide was then placed and 3 peg holes were drilled. The final size medium glenoid was then cemented in place with Palacos G cement. Surrounding soft tissues were then injected with 100 cc of an orthopedic pain control cocktail. Once cement had dried the proximal humerus was once again exposed. Sequential broaching of the humerus up to a size 16 broach was done. Off that broach a size 46 x 18 eccentric humeral head was trialed. The shoulder was then reduced, brought through a full range of motion and felt to be stable. The shoulder was then dislocated and the broach was removed. The final size 16 mini humeral stem implant was then impacted into place. A size 46 x 18 eccentric humeral head was then impacted onto the humeral stem. The shoulder was then reduced and once again brought through a full range of motion and felt to be stable. The subscapularis was then tenodesed back to the lesser tuberosity with transosseous FiberWire sutures and side to side sutures with the arm in 45 of external rotation. 2 sutures were placed in the lateral rotator interval. A dilute betadyne lavage was then done for 3 minutes. The joint was then irrigated with normal saline solution. Hemostasis was obtained. The skin was then closed with 2-0 Vicryl, 3-0V lock suture, and levi. A soft dressing was placed as well as a regular arm sling. The patient was then extubated and transferred to a hospital bed. There were taken to the postanesthesia care unit in stable condition. The tolerated the procedure well. I attest to the content of the Intraoperative Record and any orders documented therein. Any exceptions are noted below.
--- NOTE | 2018-09-23 11:20 | Anesthesiology Progress Note ---
Date of Service September 23, 2018 Anesthesia Post Procedure Vital Signs Vital Signs: Temp Pulse Pulse Resp BP Pulse Ox 09/23/18 11:15 77 24 155/91 H 97 09/23/18 11:05 73 10 L 140/80 98 09/23/18 10:55 72 16 126/100 99 09/23/18 10:47 36.3 C L 75 12 123/76 98 09/23/18 06:13 36.8 C 75 20 141/97 H 96 Notes Mental Status: alert / awake / arousable Patient Amnestic to Procedure: Yes Nausea / Vomiting: adequately controlled Pain: adequately controlled Airway Patency, RR, SpO2: stable & adequate BP & HR: stable & adequate Hydration State: stable & adequate Anesthetic Complications: no major complications apparent
--- NOTE | 2018-09-23 11:37 | XRay Report ---
XR shoulder RT min 2V routine CLINICAL HISTORY: 58 years-old Male presenting with Post shoulder surgery. TECHNIQUE: Frontal and transscapular Y views of the right shoulder were obtained. COMPARISON: CT from 08/01/2018. FINDINGS: There has been interval right shoulder arthroplasty. Glenoid anchor noted. Overlying skin levi in place. No periprosthetic fracture or malalignment is apparent. Acromioclavicular joint congruent. Exp ected soft tissue emphysema. IMPRESSION: Expected postsurgical appearance status post right shoulder arthroplasty. Electronically signed by: Dhruv Chacon M.D. 09/23/2018 11:36 AM
[2018-09-23] MEDS ORDERED: BISACODYL 10 MG SUPP PR PRN (11:53)
[2018-09-23] MEDS ORDERED: METOCLOPRAMIDE HCL INJ 5 MG/ML 2 ML VIAL IV PRN (11:53)
[2018-09-23] MEDS ORDERED: MAGNESIUM HYDROXIDE SUSP 30 ML UDC PO PRN (11:53)
[2018-09-23] MEDS ORDERED: OXYCODONE HCL IR 5 MG TAB (IMMEDIATE RELEASE) PO PRN (11:53)
[2018-09-23] MEDS ORDERED: HYDROmorphone INJ 0.5 MG/0.5 ML SYR IV PRN (11:53)
[2018-09-23] MEDS ORDERED: ALBUTEROL HFA 8 GM INHALER INH PRN (11:53)
[2018-09-23] MEDS ORDERED: NALOXONE HCL 0.4 MG/1 ML VIAL/CARP IV PRN (11:53)
[2018-09-23] MEDS ORDERED: SODIUM CHLORIDE 0.9% 1000ML 1,000 ML IV SCH (13:00)
[2018-09-23] MEDS: ACETAMINOPHEN 500 MG TAB PO SCH ×2 (13:23→21:49)
[2018-09-23] MEDS: KETOROLAC 30 MG/ML VIAL IV SCH ×2 (13:24→21:04)
[2018-09-23] MEDS: CEFAZOLIN 2000MG 2,000 MG/15 ML SYR IV SCH (16:41)
[2018-09-23] MEDS ORDERED: BENZOCAINE/MENTHOL 18 LOZ/1 BOX MT PRN (17:44)
[2018-09-23] MEDS ORDERED: CHLORASEPTIC 1.4% SOLN 180 ML BTL MT PRN (18:53)
[2018-09-23] MEDS ORDERED: SENNA 8.6 MG TAB PO SCH (21:00)
[2018-09-23] MEDS: DOCUSATE SODIUM 100 MG CAP PO SCH (21:04)
[2018-09-23] MEDS: MEDICAL MARIJUANA PO SCH (21:05)
[2018-09-24] MEDS: CEFAZOLIN 2000MG 2,000 MG/15 ML SYR IV SCH (00:13)
[2018-09-24] MEDS: KETOROLAC 30 MG/ML VIAL IV SCH ×2 (01:59→08:57)
[2018-09-24 06:10] LABS: Eosinophils # (auto) 0.02 K/uL (0-0.5); Eosinophils % (auto) 0.2 %; Hematocrit (blood only) 36.3 % (42-52); Hemoglobin 12.1 g/dL (14.0-18.0); Immature Granulocytes # (auto) 0.04 K/uL (0.00-0.02); Immature Granulocytes % (auto) 0.3 %; Lymphocytes # (auto) 1.74 K/uL (1.2-3.4); Lymphocytes % (auto) 13.4 %; Mean Corpuscular Hgb Conc 33.3 g/dL (32-36); Mean Corpuscular Volume 85.4 fL (80-100); Mean Platelet Volume 8.4 fL (7.4-10.4); Monocytes # (auto) 1.74 K/uL (0.11-0.59); Monocytes % (auto) 13.4 %; Neutrophils # (auto) 9.43 K/uL (1.4-6.5); Neutrophils % (auto) 72.7 %; Platelet Count 251 K/uL (130-400); RDW Coefficient of Variation 14.2 % (11.5-14.5); RDW Standard Deviation 43.9 fL (36.4-46.3); Red Blood Count 4.25 M/uL (4.7-6.1); White Blood Count 12.97 K/uL (4.8-10.8)
[2018-09-24] MEDS: ACETAMINOPHEN 500 MG TAB PO SCH (06:33)
[2018-09-24 06:39] LABS: BUN Creatinine Ratio 12.5 (10-20); Calcium 8.5 mg/dl (8.5-10.1); Creatinine Clr Calc Pharmacy 110.9 ml/min; Est GFR (African American) 117.6; Est GFR (Non-African American) 101.4; Potassium 4.1 mmol/L (3.5-5.1)
--- NOTE | 2018-09-24 08:13 | Orthopedic Progress Note ---
Date of Service September 24, 2018 Assessment & Plan (1) Primary osteoarthritis of right shoulder: Overall is doing very well. Is not having any pain in the right shoulder. He will be seen by physical therapy this morning for range of motion exercises. We will discharge him to home with hydrocodone later this morning. He is going to follow-up with outpatient physical therapy. Present on Admission?: Yes Subjective Efraín was seen and examined at bedside this morning. Overall he is doing very well. Is not having any pain in his right shoulder. He will be seen by physical therapy later this morning. He had no acute events overnight. He has no complaints. Physical Exam Vital Signs (Past 24 Hours): Last Vital Signs Temp 36.5 C 09/24/18 07:16 Pulse 62 09/24/18 07:16 Resp 18 09/24/18 07:16 BP 121/83 09/24/18 07:16 Pulse Ox 98 09/24/18 07:16 Musculoskeletal: On physical examination of the right shoulder, the dressing is clean and dry. He is wearing a sling as instructed. He does not have dorsiflexion of his wrist or extension of his fingers back yet. He still has some numbness in the thumb. The block is obviously still working. Results & Data Laboratory Results H & H 09/24/18 Range/Units 05:16 Hgb 12.1 L (14.0-18.0) g/dL Hct 36.3 L (42-52) % Coagulation 08/29/18 Range/Units 14:46 INR 1.0 (0.9-1.1) Diagnostic Findings Postoperative x-rays of the right shoulder show the prosthesis to be in anatomic alignment without any evidence of fracture dislocation or loosening
--- NOTE | 2018-09-24 08:15 | Discharge Summary ---
Date of Service September 24, 2018 Admission HPI Per Admitting Provider Efraín is a pleasant 58-year-old male who is been dealing with chronic increasing right shoulder pain for several years. I have given him multiple glenohumeral joint injections but unfortunately the injections are not helping anymore. X-rays and clinical examination have been diagnostic for advanced osteoarthritis of the right shoulder. After failing conservative treatment, he is elected to proceed with a right total shoulder arthroplasty. Specialty Data Orthopedic H & H 09/24/18 Range/Units 05:16 Hgb 12.1 L (14.0-18.0) g/dL Hct 36.3 L (42-52) % Coagulation 08/29/18 Range/Units 14:46 INR 1.0 (0.9-1.1) Discharge Data Procedures Performed Operation Date: 09/23/18 08:30 Actual Procedures p Right Total Shoulder Arthroplasty(Right) - Anthony Beasley DO Hospital Course (1) Primary osteoarthritis of right shoulder: On September 23, 2018 Efraín arrived at [facility] and underwent a right total shoulder arthroplasty without complication. He had a general anesthetic and a right interscalene nerve block. Postoperatively he was placed in a sling and discharged to general orthopedic floors. His hospital course was uneventful. On postop day #1 his H&H was stable and his pain was well controlled. He was able to participate well with physical therapy doing range of motion exercises. He was then discharged to home with home health. He will follow-up with orthopedics in 2 weeks. Discharge Instructions Home Medications Medication Instructions Recorded Confirmed acetaminophen [Arthritis Pain 1,300 mg PO HS 07/22/18 09/23/18 Reliever] albuterol sulfate [Ventolin HFA] 2 puff INHALATION Q6H PRN 07/22/18 09/23/18 cholecalciferol (vitamin D3) 2,000 unit PO QAM 07/22/18 09/23/18 [Vitamin D3] Cbd Oil 1 tab PO BID 09/20/18 09/23/18 Previous Rx's Medication Instructions Recorded hydrocodone-acetaminophen 1 tab PO Q6 PRN #40 tab 09/24/18
[2018-09-24] MEDS: MEDICAL MARIJUANA PO SCH (08:57)
[2018-09-24] MEDS: DOCUSATE SODIUM 100 MG CAP PO SCH (08:57)
[2018-09-24] MEDS ORDERED: CHOLECALCIFEROL 1,000 UNITS TAB PO SCH (09:00)
[2018-09-24] MEDS ORDERED: MULTIVITAMIN TAB PO SCH (09:00)
--- NOTE | 2018-09-24 12:54 | Anesthesiology Progress Note ---
Date of Service September 24, 2018 Anesthesia Post Procedure Vital Signs Vital Signs: Temp Pulse Resp BP Pulse Ox 09/24/18 09:36 36.5 C 62 18 121/83 98 09/24/18 07:16 36.5 C 62 18 121/83 98 09/24/18 03:14 36.8 C 59 L 16 107/63 96 09/23/18 23:07 36.5 C 70 16 146/82 H 96 09/23/18 20:05 36.7 C 72 16 125/74 98 09/23/18 15:37 36.5 C 66 16 145/88 H 96 09/23/18 13:46 82 18 142/82 H 98 Notes Mental Status: alert / awake / arousable and participated in evaluation Patient Amnestic to Procedure: Yes Nausea / Vomiting: adequately controlled Pain: adequately controlled Airway Patency, RR, SpO2: stable & adequate Hydration State: stable & adequate Anesthetic Complications: no major complications apparent and Pt Satisfied with anesthetic care
--- OUTSIDE RECORDS SUMMARY | 2018-10-06 10:35 | External Medical Summary | Continuity of Care Document ---
:1960 Author Name Arsenio Villasenor, Provider Address Unavailable Unavailable , Care Team Providers Name Role Phone Ha Schmitz [email or web address] Sy Chisholm Unavailable Unavailable Unavailable Unavailable Unavailable Problems RCT (rotator cuff tear) (840.4) (M75.100) Localized primary osteoarthritis of lower leg (715.16) (M17. 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) Renal calculi (592.0) (N20.0) Pulmonary nodule (793.11) (R91.1) Squamous cell carcinoma of lung (162.9) (C34.90) Internal hemorrhoids (455.0) (K64.8) Abnormal thyroid blood test (790.6) (R79.89) Former smoker (V15.82) (Z87.891) Peripheral vascular disease (443.9) (I73.9) Prediabetes (790.29) (R73.03) Chest pain (786.50) (R07.9) Fatigue (780.79) (R53.83) Palpitations (785.1) (R00.2) Allergies and Adverse Reactions No Known Drug Allergies (Allergy) Medications Vitamin D 1000 UNIT Oral Tablet; TAKE 2 TABLET Daily Start: 25-Apr-2015 Quantity: 60 Refills: 5 HYDROcodone-Acetaminophen 10-325 MG Oral Tablet; TAKE 1 TABLET EVERY 6 HOURS NEEDED. Start: 26-Jun-2016 Refills: 0 Ventolin HFA 108 (90 Base) MCG/ACT Inhal ation Aerosol Solution; INHALE 2 PUFFS EVERY 4 HOURS NEEDED 18 GM Inhaler Quantity: 1 Refills: 5 Ultram 50 MG Oral Tablet; TAKE 1 TABLET 2 TIMES DAILY. Refills: 0 Cyanocobalamin 1000 MCG/ML Injection Diane ution; INJECT 1 ML INTRAMUSCULARLY ONCE A MONTH Refills: 0 Procedures History of Knee Replacement Status: Comp leted History of Gastric Surgery For Morbid Obesity Status: Completed Gastric Bypass History of Hernia Repair Status: Complet ed History of Neuroplasty Decompression Median Nerve Status: Completed At Carpal Tunnel History of Throat Surgery Status: Comple almaz History of Thoracoscopy (Therapeutic) With Status: Completed 15-Jul-2015 0:00 Lobectomy Two Lobes History of Lymphadenectomy Status: Compl eted 15-Jul-2015 0:00 History of Lung Lobectomy Status: Comple almaz History of Colonoscopy (Fiberoptic) Stat us: Completed Immunizations Immunizations not documented Family History Mother Family history of diabetes mellitus (V18.0) (Z83.3) Status: Active Family history of kidney stones (V18.69) (Z84.1) Status: Act neil Father Family history of cardiac disorder (V17.49) (Z82.49) Status: Active uncle Family history of malignant neoplasm of prostate (V16. 42) (Z80.42) Status: Active Social History - Smoking Status Former smoker Plan of Treatment Planned Observations Planned Goals not documented Results No Known Results Results not documented Encounters Appointment; Buck Daigle M.D. 11-Aug-2018 9:45 Encounter Diagnosis: Problem not documented Appointment; Valery Scott PA-C 11-Feb-2018 13:00 Encounter Diagnosis: Problem not documented Appointment; Vicenta Evans PA-C 28-Jan-2018 13:30 Encounter Diagnosis: Problem not documented Appointment; Echo/Stress, Echo/Stress 28-Jan-2018 13:00 Encounter Diagnosis: Problem not documented Appointment; Vicenta Evans PA-C 18-Jan-2018 14:30 Encounter Diagnosis: Problem not documented Appointment; Stress, Echocardiogram 1 18-Jan-2018 14:00 Encounter Diagnosis: Problem not documented Appointment; Vicenta Evans PA-C 04-Jan-2018 14:30 Encounter Diagnosis: Problem not documented Appointment; Stress, Echocardiogram 1 04-Jan-2018 14:00 Encounter Diagnosis: Problem not documented Appointment; Med [facility], Nursing Station 29-Dec-2017 14:30 Encounter Diagnosis: Problem not documented Appointment; Med [facility], Nursing Station 27-Dec-2017 14:30 Encounter Diagnosis: Problem not documented Appointment; Valery Scott PA-C 16-Dec-2017 14:30 Encounter Diagnosis: Problem not documented Appointment; Buck Daigle M.D. 01-Jul-2017 9:45 Encounter Diagnosis: Problem not documented Appointment; Buck Daigle M.D. 17-Dec-2016 9:45 Encounter Diagnosis: Problem not documented
== END 2018-09-24 10:26 | disposition home health service (06) | DRG 483 ==
LOC: ASU 05:54 → 3E 10:53

== ENCOUNTER 2022-02-26 10:03 | Inpatient (IN) ==
[2022-02-26 11:12] LABS: Basophils # (auto) 0.02 K/uL (0-0.2); Basophils % (auto) 0.2 %; Eosinophils % (auto) 1.1 %; Hematocrit (blood only) 39.5 % (40.1-51.0); Hemoglobin 13.7 g/dl (14.0-18.0); Immature Granulocytes # (auto) 0.03 K/uL (0.00-0.02); Immature Granulocytes % (auto) 0.3 %; Lymphocytes # (auto) 0.69 K/uL (1.2-3.4); Lymphocytes % (auto) 7.3 %; Mean Corpuscular Hemoglobin 33.4 pg (25.0-34.0); Mean Corpuscular Hgb Conc 34.7 g/dL (32.0-36.0); Mean Corpuscular Volume 96.3 fL (80.0-100.0); Monocytes # (auto) 1.05 K/uL (0.24-0.82); Monocytes % (auto) 11.2 %; Neutrophils % (auto) 79.9 %; Platelet Count 219 K/uL (130-400); RDW Coefficient of Variation 19.2 % (11.5-14.5); RDW Standard Deviation 66.4 fL (36.4-46.3); White Blood Count 9.39 K/ul (4.8-10.8)
--- NOTE | 2022-02-26 11:30 | XRay Report ---
XR chest 1V portable CLINICAL HISTORY: coughing up blood TECHNIQUE: Single frontal radiograph of the chest was obtained. Comparison: Comparison is made to chest radiograph 07/17/2021 and CTA chest 09/13/2021 FINDINGS: Right shoulder arthroplasty is unchanged. The cardiomediastinal silhouette is normal. Stable prominen ce of the left hilum. No acute abnormality is seen. Postoperative changes of the right lung are stabl e. No evidence of pleural effusion or pneumothorax. IMPRESSION: No radiographic abnormality is seen. ACT 112: Negative or not required by law. Electronically signed by: Armando Granger M.D. 02/26/2022 11:27 AM
[2022-02-26 11:35] LABS: Albumin Globulin Ratio 1.5 (0.9-2); Albumin Level 4.1 gm/dl (3.4-5.0); BUN Creatinine Ratio 14.5 (10-20); Bilirubin,Total 0.6 mg/dl (0.2-1.0); Calcium 9.5 mg/dl (8.5-10.1); Creatinine Clr Calc Pharmacy 108.2 ml/min; Est GFR (African American) 120.4 ml/min; Est GFR (Non-African American) 103.9 ml/min; Globulin 2.7 gm/dl (2.5-4.0); Potassium 4.3 mmol/L (3.5-5.1); Total Protein 6.8 gm/dl (6.0-8.3)
--- NOTE | 2022-02-26 12:18 | Emergency Department Note ---
Impression & Plan Pulmonary embolism, Chest pain ED Provider Note NAME: ANT GARCIA AGE: 61 SEX: M : 1960 ARRIVES VIA: Walk-In INFORMANT: Patient ED PROVIDER(S): Osman Morocho DO CHIEF COMPLAINT: Coughing up blood HPI: Patient is a 61-year-old male with a past medical history of partial gastrectomy, gastric cancer, pulmonary cancer, lobe resection who presents to [facility] ER for cough which has been present for the past several months. He is a smoker. He denies any blood thinners. He notes over the past 24 hours he coughed up small dime to nickel size clots. He denies any chest pain or shortness of breath. No belly pain, nausea, vomiting, or diarrhea. No dysuria, urgency, or frequency. No other exacerbating or remitting factors. He has never had this before. He is not vomiting blood. ROS: See above HPI for pertinent positives & negatives. A total of 10 systems reviewed and were otherwise negative. PAST MEDICAL HISTORY:See Below PAST SURGICAL HISTORY:See Below FAMILY HISTORY:See Below SOCIAL HISTORY:See Below HOME MEDICATIONS:See Below ALLERGIES:See Below VITALS:See Below PHYSICAL EXAMINATION: GENERAL: Sitting up in bed, alert, well appearing, well nourished, no distress, non-toxic EYE EXAM: normal conjunctiva. OROPHARYNX: mucous membranes are moist NECK: supple, no nuchal rigidity, no adenopathy, non-tender LUNGS: Wheezing bilaterally. Normal chest wall mechanics HEART: no murmurs, S1 normal and S2 normal RECTAL: hem neg ABDOMEN: abdomen soft, non-tender, normo-active bowel sounds, no masses, no rebound or guarding. UPPER EXTREMITIES: upper extremities are grossly normal. LOWER EXTREMITIES: No pitting edema. NEURO EXAM: Normal sensorium, cranial nerves II-XII grossly intact, normal speech, no gross weakness of arms, no gross weakness of legs. MEDICAL DECISION MAKING: Patient is a 61-year-old male who presents the ER with above-stated complaint. IV was established blood work was obtained. Labs show no significant leukocytosis or anemia. INR unremarkable. BMP along with LFTs bilirubin and li pase was unremarkable. COVID was negative. Denies any history of coughing up blood other than past 24 hours, vomiting blood, urinating blood, dark tarry stools or bright red blood per rectum. No previous brain bleeds. No recent trauma or surgery. CT angio of the chest showed bilateral subsegmental and segmental PEs. Rectal heme negative performed by myself. Discussed the risk and benefits of heparin and patient and family agreed and he was placed on heparin and given a bolus. He was discussed with the hospitalist he will be admitted for further work-up of his bilateral PEs. He notes that he has been having some right calf pain as well which has been present for some time now. Triage Nursing notes reviewed. Limited review of prior medical records performed Vital Signs: reviewed and remarkable for no significant abnormalities Differential diagnosis: Differential diagnoses includes but is not limited to pneumonia, bronchitis, C OPD/Asthma exacerbation, pneumothorax, pulmonary embolism, congestive heart failure, acute coronary syndrome ER treatment provided: See below Diagnostics interpreted by me: ECG: Sinus rhythm rate of 73 Right bundle branch block Left axis No PVCs QTC 420 Cardiac Monitoring: An order was placed for continuous cardiac monitoring. The monitor shows a rate of 70 with sinus rhythm. Laboratory studies: As stated above and show below. Imaging studies: CT angio of the chest showed bilateral PEs Consultation(s): [facility] Dr. Sanchez Procedures: none Critical Care: I have personally spent 33 minutes of critical care time in the direct management of this patient. This includes bedside care, interpretation of diagnostic studies, and testing, discussion with consultants, patient, and family members, and other required patient management activities. This 33 minutes is in excess of all separately billable procedures. Past Med/Surg History Medical History Arthritis Chronic obstructive pulmonary disease DJD (degenerative joint disease) Gastric cancer Gastric fistula Gastric outlet obstruction GERD (gastroesophageal reflux disease) H/O diabetes mellitus History of kidney stones Hx of cancer of lung Hx of sleep apnea Iron deficiency anemia Obesity Peripheral vascular disease Postoperative abscess Surgical History H/O endoscopy H/O left knee surgery History of carpal tunnel release of both wrists History of cataract surgery History of colonoscopy History of lobectomy of lung History of total right knee replacement History of total shoulder replacement Hx of gastric bypass Hx of hernia repair S/P partial gastrectomy Family History Mother COPD (chronic obstructive pulmonary disease) Diabetes Father Myocardial infarction Hx of CABG Cirrhosis of liver Social History Smoking Status: Current every day smoker Tobacco Type: Cigarettes Cigarettes Per Day: 20-30; Second Hand Exposure: Yes; Hx Alcohol Use: Yes Alcohol type: beer Hx Substance Use: No Preferred Language: Luxembourgish Communication Ability: Effective Visual Impairment: No Limitations Hearing Ability: Normal Fulfillment Mail Clerk Required: No Beliefs That Will Affect Care: None marital status: Current Living Situation: Family Current Living Situation Comment: LIVES WITH MOTHER current occupational status: unemployed How many Children do You have: 0 Feels Safe at Home: Yes caffeine: No during the past year weight has: decreased > 10 lbs Allergies Allergies Allergy/AdvReac Type Severity Reaction Status Date / Time morphine AdvReac Headache Verified 01/28/22 09:26 Home Meds Home Medications Medication Instructions Recorded Confirmed umeclidinium 62.5 mcg-vilanterol 1 inh inhalation QAM 07/05/19 01/28/22 25 mcg/actuation powdr for inhalation (Anoro Ellipta) acetaminophen 500 mg tablet 1,000 mg PO Q8 PRN 10/22/21 01/28/22 (Tylenol Extra Strength) albuterol sulfate 90 mcg/actuation 1 puff inhalation Q4H PRN 10/22/21 01/28/22 aerosol inhaler (Ventolin HFA) Shortness Of Breath calcium carbonate 600 mg-vitamin 2 cap PO DAILY 10/22/21 01/28/22 D3 12.5 mcg (500 unit) capsule (Calcium 600 with Vitamin D3) cholecalciferol (vitamin D3) 25 75 mcg PO DAILY 10/22/21 01/28/22 mcg (1,000 unit) capsule famotidine 40 mg tablet 40 mg PO DAILY 10/22/21 01/28/22 fluticasone fur. 100 mcg-umeclid 1 inh inhalation DAILY 10/22/21 01/28/22 62.5 mcg-vilant 25 mcg inhalat.powder (Trelegy Ellipta) ipratropium 0.5 mg-albuterol 3 mg 3 ml inhalation Q6H PRN 10/22/21 01/28/22 (2.5 mg base)/3 mL nebulization soln multivitamin (Multiple Vitamins 1 tab PO DAILY 10/22/21 01/28/22 tablet) ondansetron HCl 4 mg tablet 4 mg PO Q8H PRN 10/22/21 01/28/22 oxycodone 5 mg capsule 5 mg PO Q6H PRN 10/22/21 01/28/22 simethicone 80 mg chewable tablet 160 mg PO Q6H PRN 10/22/21 01/28/22 (Gas Relief (simethicone)) capecitabine 500 mg tablet (Xeloda) 2,000 mg PO BID 11/11/21 01/28/22 tramadol 50 mg tablet 50 mg PO DAILY 11/11/21 01/28/22 bupropion HCl 100 mg tablet,12 hr 100 mg PO Q12H 11/24/21 01/28/22 sustained-release (Wellbutrin SR) hydroxyzine HCl 10 mg tablet 20 mg PO TID PRN 11/24/21 01/28/22 lisinopril 2.5 mg tablet 2.5 mg PO DAILY 11/24/21 01/28/22 Results & Data (ED) Vital Signs Vital Signs - 24 hr 02/26/22 10:38 Temperature 36.0 C L Temperature Source Temporal Artery Scan Pulse Rate 78 Respiratory Rate 16 Respiratory Effort / Characteristics Non-Labored Respiratory Depth Normal Blood Pressure 126/80 Blood Pressure Mean 95 Pulse Oximetry 98 Oxygen Delivery Method Room Air Sepsis Recent Fever Within 48 Hours No Sepsis New/Unexplained Change in Mental Status No Sepsis Action Taken by Nursing No Action Required Laboratory Data Result diagrams: 02/26/22 10:58 02/26/22 10:58 Lab Results 02/26/22 02/26/22 02/26/22 Range/Units 10:58 10:58 10:58 WBC 9.39 (4.8-10.8) K/ul RBC 4.10 L (4.63-6.08) M/uL Hgb 13.7 L (14.0-18.0) g/dl Hct 39.5 L (40.1-51.0) % MCV 96.3 (80.0-100.0) fL MCH 33.4 (25.0-34.0) pg MCHC 34.7 (32.0-36.0) g/dL RDW Std Deviation 66.4 H (36.4-46.3) fL RDW Coeff of Raissa 19.2 H (11.5-14.5) % Plt Count 219 (130-400) K/uL MPV 8.0 L (9.4-12.4) fL Immature Gran % (Auto) 0.3 % Neut % (Auto) 79.9 % Lymph % (Auto) 7.3 % [place] % (Auto) 11.2 % Eos % (Auto) 1.1 % Baso % (Auto) 0.2 % Neut # (Auto) 7.50 H (1.4-6.5) K/uL Lymph # (Auto) 0.69 L (1.2-3.4) K/uL [place] # (Auto) 1.05 H (0.24-0.82) K/uL Eos # (Auto) 0.10 (0-0.50) K/uL Baso # (Auto) 0.02 (0-0.2) K/uL Immature Gran # (Auto) 0.03 H (0.00-0.02) K/uL PT 10.6 (9.0-12.0) Seconds INR 1.0 (0.9-1.1) APTT 24.3 (21.0-31.0) Seconds PTT Ratio 0.9 Sodium 138 (136-145) mmol/L Potassium 4.3 (3.5-5.1) mmol/L Chloride 105 (98-107) mmol/L Carbon Dioxide 28 (21-32) mmol/L Anion Gap 5 (3-11) BUN 10 (6-23) mg/dl Creatinine 0.69 (0.6-1.4) mg/dl Est Cr Clr Drug Dosing 108.2 ml/min Est GFR ( Amer) 120.4 ml/min Est GFR (Non-Af Amer) 103.9 ml/min BUN/Creatinine Ratio 14.5 (10-20) Glucose 121 H (70-99(Fasting)) mg/dl Calcium 9.5 (8.5-10.1) mg/dl Total Bilirubin 0.6 (0.2-1.0) mg/dl AST 20 (13-39) U/L ALT 12 (7-52) U/L Alkaline Phosphatase 135 H (34-104) U/L Total Protein 6.8 (6.0-8.3) gm/dl Albumin 4.1 (3.4-5.0) gm/dl Globulin 2.7 (2.5-4.0) gm/dl Albumin/Globulin Ratio 1.5 (0.9-2) Lipase 9 L (11-82) U/L Administered Medications Discontinued Medications Ioversol (Optiray 300 500ml) 110 ml IV ONCE ONE Stop: 02/26/22 12:53 Last Admin: 02/26/22 12:53 Dose: 110 ml Documented By: [facility] Imaging Data Radiologist's Impression: Chest X-Ray 02/26/22 10:47 XR chest 1V portable CLINICAL HISTORY: coughing up blood TECHNIQUE: Single frontal radiograph of the chest was obtained. Comparison: Comparison is made to chest radiograph 07/17/2021 and CTA chest 09/13/2021 FINDINGS: Right shoulder arthroplasty is unchanged. The cardiomediastinal silhouette is normal. Stable prominence of the left hilum. No acute abnormality is seen. Postoperative changes of the right lung are stable. No evidence of pleural effusion or pneumothorax. IMPRESSION: No radiographic abnormality is seen. ACT 112: Negative or not required by law. Electronically signed by: Armando Granger M.D. 02/26/2022 11:27 AM Chest CTA 02/26/22 12:13 CT angio chest PE protocol CLINICAL HISTORY: PE TECHNIQUE: Multidetector row helical CT of the chest was performed with angiographic protocol. Coronal and sagittal reformations were obtained. Coronal and sagittal MIPS were obtained from the axial data set and were submitted for review. Automated dose lowering techniques and/or adjustment according to patient size were utilized for this exam. CT DOSE: 378.42 mGy.cm Comparison: Comparison is made to CT chest 10/03/2021 FINDINGS: Lungs and pleura: Consolidative opacities are seen in the peripheral left lung base. Patient is status post right upper lobectomy. Heart and pericardium: Unremarkable. No right heart strain is seen. Vessels: Pulmonary emboli are seen in segmental and subsegmental arteries in the left lower lobe and right lower lobe. Tortuosity of the right main pulmonary artery is incidentally noted. Mediastinum and chantell: Unremarkable. Chest wall and lower neck: Gynecomastia is noted bilaterally. Abdomen: Gastric bypass surgery changes are seen. Bones: Degenerative changes in the thoracic spine. Right shoulder reverse arthroplasty is seen. IMPRESSION: Bilateral segmental and subsegmental pulmonary emboli. Consolidative densities in the peripheral right lower lobe likely represent pulmonary infarcts. No evidence of right heart strain. ACT 112: Negative or not required by law. Electronically signed by: Armando rGanger M.D. 02/26/2022 1:20 PM Discharge Plan Visit Data Chief Complaint: GI Assessment Stated Complaint: COUGHING UP BLOOD,HX LUNG CA,CURRENT STOMACH CA ED Provider: Osman Morocho Discharge Problem: Pulmonary embolism, Chest pain Forms Stand Alone Forms: My [facility] F[employer] Up [employer] Prescriptions Prescriptions: No Action oxycodone 5 mg capsule 5 mg PO Q6H PRN ipratropium-albuterol 0.5 mg-3 mg(2.5 mg base)/3 mL solution for nebulization 3 ml inhalation Q6H PRN calcium carbonate-vitamin D3 [Calcium 600 with Vitamin D3] 600 mg-12.5 mcg (500 unit) capsule 2 cap PO DAILY famotidine 40 mg tablet 40 mg PO DAILY multivitamin [Multiple Vitamins] Tablet 1 tab PO DAILY ondansetron HCl 4 mg tablet 4 mg PO Q8H PRN simethicone [Gas Relief (simethicone)] 80 mg tablet,chewable 160 mg PO Q6H PRN Trelegy Ellipta 100-62.5-25 mcg blister with device 1 inh inhalation DAILY cholecalciferol (vitamin D3) 25 mcg (1,000 unit) capsule 75 mcg PO DAILY tramadol 50 mg tablet 50 mg PO DAILY capecitabine [Xeloda] 500 mg tablet 2,000 mg PO BID lisinopril 2.5 mg tablet 2.5 mg PO DAILY hydroxyzine HCl 10 mg tablet 20 mg PO TID PRN bupropion HCl [Wellbutrin SR] 100 mg tablet sustained-release 12 hr 100 mg PO Q12H albuterol sulfate [Ventolin HFA] 90 mcg/actuation HFA aerosol inhaler 1 puff INHALATION Q4H PRN (Reason: Shortness Of Breath) Anoro Ellipta 62.5-25 mcg/actuation Blister With Device 1 inh INHALATION QAM acetaminophen [Tylenol Extra Strength] 500 mg tablet 1,000 mg PO Q8 PRN Rx Instructions: Takes 1 regular ES Tylenol & 1 rapid release cap Referrals Referrals: Tasha Salazar PA-C [Primary Care Provider] -
[2022-02-26] MEDS ORDERED: OPTIRAY 300 500mL IV ONE (12:52)
--- NOTE | 2022-02-26 13:21 | CT Scan Report ---
CT angio chest PE protocol CLINICAL HISTORY: PE TECHNIQUE: Multidetector row helical CT of the chest was performed with angiographic protocol. Mcnally l and sagittal reformations were obtained. Coronal and sagittal MIPS were obtained from the axial dayanna a set and were submitted for review. Automated dose lowering techniques and/or adjustment according to patient size were utilized for this exam. CT DOSE: 378.42 mGy.cm Comparison: Comparison is made to CT chest 10/03/2021 FINDINGS: Lungs and pleura: Consolidative opacities are seen in the peripheral left lung base. Patient is statu s post right upper lobectomy. Heart and pericardium: Unremarkable. No right heart strain is seen. Vessels: Pulmonary emboli are seen in segmental and subsegmental arteries in the left lower lobe and right lower lobe. Tortuosity of the right main pulmonary artery is incidentally noted. Mediastinum and chantell: Unremarkable. Chest wall and lower neck: Gynecomastia is noted bilaterally. Abdomen: Gastric bypass surgery changes are seen. Bones: Degenerative changes in the thoracic spine. Right shoulder reverse arthroplasty is seen. IMPRESSION: Bilateral segmental and subsegmental pulmonary emboli. Consolidative densities in the peripheral righ t lower lobe likely represent pulmonary infarcts. No evidence of right heart strain. ACT 112: Negative or not required by law. Electronically signed by: Armando Granger M.D. 02/26/2022 1:20 PM
[2022-02-26] MEDS ORDERED: HEPARIN SOD (PORCINE) 1000 UNIT/ML IV ONE ×2 (13:58→23:15)
[2022-02-26] MEDS ORDERED: HEPARIN SODIUM/DEXTROSE 25,000 UNITS/500 ML BAG IV SCH (14:00)
[2022-02-26 14:14] LABS: Partial Thromboplastin Ratio 0.9; Partial Thromboplastin Time 24.3 Seconds (21.0-31.0); Prothrombin Time 10.6 Seconds (9.0-12.0)
[2022-02-26] MEDS ORDERED: NICOTINE POLACRILEX 2 MG GUM MT PRN (14:30)
[2022-02-26] MEDS: NICOTINE 21 MG/24 HR TDSY TD SCH (15:12)
--- NOTE | 2022-02-26 16:22 | History & Physical Report ---
Date of Service February 26, 2022 Assessment & Plan (1) Hemoptysis: (2) Pulmonary embolism: Plan This is a 61-year-old male who has a significant past medical history of T2DM, right lung squamous cell carcinoma status post chemotherapy and lobectomy in 2014, COPD, tobacco abuse, history of Ankita-en-Y, history of abscess near gastric pouch status post fistula creation, pigtail, status post stent placement with interval resolution of abscess, status post laparoscopic subtotal gastrectomy to remove a pyloric obstruction which was found to be invasive adenocarcinoma poorly differentiated currently on chemotherapy followed by Dr. Bobby, GERD, iron deficiency anemia, current stage III gastric adenocarcinoma who presents to ED secondary to hemoptysis x1 day. Hemoptysis Bilateral segmental and subsegmental pulmonary emboli Admit to telemetry Continue IV heparin, will defer transition to intermediate agent to a.m. provider obtain echocardiogram r/o right heart strain monitor cbc consider pulm consult given infarcts and if persistent hemopytsis He is hemodynamically stable on room air obtain b/l venous doppler to r/o dvt given c/o calf pain Hx of R lung SCC s/p lobectomy Current stage [address] Bobby on xeloda Tobacco abuse encourage cessation nicotine patch ordered HTN continue lisinopril COPD continue trelegy, no acute exac Hx of T2Dm last a1c 5.2 06/2021 obtain a1c in a.m. controlled s/p ankita en y DVT ppx: IV Heparin Dispo: Tele FULL CODE PCP: Agatha Mckeon Pt was seen and examined in collaboration with Dr. Sanchez, please see addendum History of Present Illness Chief Complaint: Hemoptysis x 1 day. Primary Care Provider: Tasha Salazar PA-C This is a 61-year-old male who has a significant past medical history of T2DM, right lung squamous cell carcinoma status post chemotherapy and lobectomy in 2014, COPD, tobacco abuse, history of Ankita-en-Y, history of abscess near gastric pouch status post fistula creation, pigtail, status post stent placement with interval resolution of abscess, status post laparoscopic subtotal gastrectomy to remove a pyloric obstruction which was found to be invasive adenocarcinoma poorly differentiated currently on chemotherapy followed by Dr. Bobby, GERD, iron deficiency anemia, current stage III gastric adenocarcinoma who presents to ED secondary to hemoptysis x1 day. He admits to having a cough for the past several months. He is a current smoker. Over the past 24 hours he has been coughing up blood, described as small dime size clots. Due to this he presented to ER for further evaluation. He also c/o R calf pain a few days ago but no swelling or redness. He denies any patel chest pain, shortness of breath or wheezing. He denies any lightheadedness, dizziness, fever, chills, sweats, nausea, vomiting, abdominal pain, changes bowel or urinary habits. He has never anything like this before. CTA of chest revealed bilateral segmental and subsegmental pulmonary emboli, consolidative densities in the peripheral right lower lobe likely represents pulmonary infarcts. No evidence of right heart strain. He was started on IV heparin. He remained hemodynamically stable in ED. Allergies Allergy/AdvReac Type Severity Reaction Status Date / Time morphine AdvReac Headache Verified 02/26/22 16:01 Home Medications Medication Instructions Recorded Confirmed Type acetaminophen 500 mg tablet 1,000 mg PO Q8 PRN Pain 10/22/21 02/26/22 History (Tylenol Extra Strength) albuterol sulfate 90 mcg/actuation 1 puff inhalation Q4H PRN 10/22/21 02/26/22 History aerosol inhaler (Ventolin HFA) Shortness Of Breath famotidine 40 mg tablet 40 mg PO DAILY 10/22/21 02/26/22 History ipratropium 0.5 mg-albuterol 3 mg 3 ml inhalation Q6H PRN Shortness 10/22/21 02/26/22 History (2.5 mg base)/3 mL nebulization Of Breath soln ondansetron HCl 4 mg tablet 4 mg PO Q8H PRN Nausea 10/22/21 02/26/22 History capecitabine 500 mg tablet (Xeloda) 2,000 mg PO BID 11/11/21 02/26/22 History tramadol 50 mg tablet 50 mg PO Q6H PRN Pain 11/11/21 02/26/22 History bupropion HCl 100 mg tablet,12 hr 100 mg PO Q12H 11/24/21 02/26/22 History sustained-release (Wellbutrin SR) lisinopril 2.5 mg tablet 2.5 mg PO DAILY 11/24/21 02/26/22 History calcium carbonate 500 mg calcium 500 mg PO DAILY 02/26/22 02/26/22 History (1,250 mg) tablet cholecalciferol (vitamin D3) 25 50 mcg PO DAILY 02/26/22 02/26/22 History mcg (1,000 unit) tablet diphenhydramine 25 1 tab PO HS PRN Pain 02/26/22 02/26/22 History mg-acetaminophen 500 mg tablet (Acetaminophen PM) fluticasone fur. 100 mcg-umeclid 1 inh inhalation DAILY 02/26/22 02/26/22 History 62.5 mcg-vilant 25 mcg inhalat.powder (Trelegy Ellipta) loratadine 10 mg tablet (Allergy 10 mg PO DAILY 02/26/22 02/26/22 History Relief (loratadine)) multivitamin 1 tab PO DAILY 02/26/22 02/26/22 History simethicone 80 mg chewable tablet 80 mg PO BID PRN Gastric Reflux 02/26/22 02/26/22 History Past Med/Surg History Medical History Arthritis Chronic obstructive pulmonary disease rare rescue inhaler DJD (degenerative joint disease) Gastric cancer 09/04/21 Gastric fistula Gastric outlet obstruction GERD (gastroesophageal reflux disease) H/O diabetes mellitus diet controlled since weight loss/gastric bypass History of kidney stones Hx of cancer of lung s/p right middle and upper lobectomy 07/23/2015, + chemo Hx of sleep apnea no longer uses CPAP s/p UPPP done years ago (patient believes retest negative) Iron deficiency anemia Obesity Peripheral vascular disease Postoperative abscess Surgical History H/O endoscopy H/O left knee surgery History of carpal tunnel release of both wrists History of cataract surgery History of colonoscopy History of lobectomy of lung removal of upper and middle lobes right side - [facility] - 07/2015 History of total right knee replacement History of total shoulder replacement RIGHT Hx of gastric bypass 2000 [facility] Hx of hernia repair abdominal S/P partial gastrectomy Subtotal gastrectomy and ventral hernia repair on 09/04/21 Family History Mother , 79yo COPD (chronic obstructive pulmonary disease) Smoker Diabetes Father , 57yo Myocardial infarction Hx of CABG Cirrhosis of liver Social History Smoking Status: Current every day smoker Tobacco Type: Cigarettes Cigarettes Per Day: 20-30; Second Hand Exposure: Yes; Hx Alcohol Use: Yes Alcohol type: beer Hx Substance Use: No Preferred Language: Nepali Communication Ability: Effective Visual Impairment: No Limitations Hearing Ability: Normal Personal Care Assistant Required: No Beliefs That Will Affect Care: None marital status: Current Living Situation: Family Current Living Situation Comment: LIVES WITH MOTHER current occupational status: unemployed How many Children do You have: 0 Feels Safe at Home: Yes caffeine: No during the past year weight has: decreased > 10 lbs Review of Systems Review of Systems: All systems reviewed & are unremarkable except as noted in HPI & below Physical Exam Physical Exam: Please refer to Dr. Sanchez addendum for physical exam findings. Results & Data Results & Data ([facility]) Vital Signs (Past 12 Hours) Vital Signs Temp Pulse Resp BP Pulse Ox O2 Del Method 02/26/22 10:38 36.0 C L 78 16 126/80 98 Room Air Diagnostic Findings Chest X-Ray 02/26/22 10:47 XR chest 1V portable CLINICAL HISTORY: coughing up blood TECHNIQUE: Single frontal radiograph of the chest was obtained. Comparison: Comparison is made to chest radiograph 07/17/2021 and CTA chest 09/13/2021 FINDINGS: Right shoulder arthroplasty is unchanged. The cardiomediastinal silhouette is normal. Stable prominence of the left hilum. No acute abnormality is seen. Postoperative changes of the right lung are stable. No evidence of pleural effusion or pneumothorax. IMPRESSION: No radiographic abnormality is seen. ACT 112: Negative or not required by law. Electronically signed by: Armando Granger M.D. 02/26/2022 11:27 AM Chest CTA 02/26/22 12:13 CT angio chest PE protocol CLINICAL HISTORY: PE TECHNIQUE: Multidetector row helical CT of the chest was performed with angiographic protocol. Coronal and sagittal reformations were obtained. Coronal and sagittal MIPS were obtained from the axial data set and were submitted for review. Automated dose lowering techniques and/or adjustment according to patient size were utilized for this exam. CT DOSE: 378.42 mGy.cm Comparison: Comparison is made to CT chest 10/03/2021 FINDINGS: Lungs and pleura: Consolidative opacities are seen in the peripheral left lung base. Patient is status post right upper lobectomy. Heart and pericardium: Unremarkable. No right heart strain is seen. Vessels: Pulmonary emboli are seen in segmental and subsegmental arteries in the left lower lobe and right lower lobe. Tortuosity of the right main pulmonary artery is incidentally noted. Mediastinum and chantell: Unremarkable. Chest wall and lower neck: Gynecomastia is noted bilaterally. Abdomen: Gastric bypass surgery changes are seen. Bones: Degenerative changes in the thoracic spine. Right shoulder reverse arthroplasty is seen. IMPRESSION: Bilateral segmental and subsegmental pulmonary emboli. Consolidative densities in the peripheral right lower lobe likely represent pulmonary infarcts. No evidence of right heart strain. ACT 112: Negative or not required by law. Electronically signed by: Armando Granger M.D. 02/26/2022 1:20 PM Medications Administered Medication List Heparin Sodium/Dextrose (Heparin Sodium/Dextrose) 25,000 units in 500 mls @ 0.02 mls/hr IV .Q24H SEKOU; Protocol Stop: 03/28/22 13:59 Last Admin: 02/26/22 15:10 Dose: 800 units/hr, 16 mls/hr Documented By: MAYELIN Co-signed By: MARINA Nicotine (Nicotine 21 Mg/24 Hr Tdsy) 21 mg TD QAM SEKOU Stop: 03/28/22 14:29 Last Admin: 02/26/22 15:12 Dose: 21 mg Documented By: MAYELIN Nicotine Polacrilex (Nicotine Polacrilex 2 Mg Gum) 1 piece MT PRN PRN PRN Reason: Agitation Stop: 03/28/22 14:29 Last Admin: 02/26/22 15:12 Dose: 1 piece Documented By: MAYELIN Discontinued Medications Heparin Sodium (Porcine) (Heparin Sod (Porcine) 1000 Unit/Ml) 1 units IV NOW ONE Stop: 02/26/22 13:59 Last Admin: 02/26/22 15:11 Dose: 4,000 units Documented By: MAYELIN Co-signed By: MARINA Ioversol (Optiray 300 500ml) 110 ml IV ONCE ONE Stop: 02/26/22 12:53 Last Admin: 02/26/22 12:53 Dose: 110 ml Documented By: [facility] ECG Rate (beats per minute): 73 Rhythm: normal sinus Findings: + RBBB Additional Comments: [facility] COVID-19 Results Results COVID-19 Adm Lab Results: RBC 4.10 M/uL (4.63-6.08) L 02/26/22 WBC 9.39 K/ul (4.8-10.8) 02/26/22 Hgb 13.7 g/dl (14.0-18.0) L 02/26/22 Hct 39.5 % (40.1-51.0) L 02/26/22 Plt Count 219 K/uL (130-400) 02/26/22 Neutrophils (%) (Auto) 79.9 % 02/26/22 Lymphocytes (%) (Auto) 7.3 % 02/26/22 Monocytes # (Auto) 1.05 K/uL (0.24-0.82) H 02/26/22 Eosinophils # (Auto) 0.10 K/uL (0-0.50) 02/26/22 Immature Granulocyte % (Auto) 0.3 % 02/26/22 Neutrophils # (Auto) 7.50 K/uL (1.4-6.5) H 02/26/22 Lymphocytes # (Auto) 0.69 K/uL (1.2-3.4) L 02/26/22 Monocytes # (Auto) 1.05 K/uL (0.24-0.82) H 02/26/22 Eosinophils # (Auto) 0.10 K/uL (0-0.50) 02/26/22 Basophils # (Auto) 0.02 K/uL (0-0.2) 02/26/22 Immature Granulocyte # (Auto) 0.03 K/uL (0.00-0.02) H 02/26 Na 138 mmol/L (136-145) 02/26/22 K 4.3 mmol/L (3.5-5.1) 02/26/22 Cl 105 mmol/L (98-107) 02/26/22 CO2 28 mmol/L (21-32) 02/26/22 Anion Gap 5 (3-11) 02/26/22 BUN 10 mg/dl (6-23) 02/26/22 Creatinine 0.69 mg/dl (0.6-1.4) 02/26/22 BUN/Creatinine Ratio 14.5 (10-20) 02/26/22 Glucose Level 121 mg/dl (70-99(Fasting)) H 02/26/22 Ca 9.5 mg/dl (8.5-10.1) 02/26/22 Total Bilirubin 0.6 mg/dl (0.2-1.0) 02/26/22 AST/SGOT 20 U/L (13-39) 02/26/22 ALT/SGPT 12 U/L (7-52) 02/26/22 Alkaline Phosphatase 135 U/L (34-104) H 02/26/22 Total Protein 6.8 gm/dl (6.0-8.3) 02/26/22 Albumin 4.1 gm/dl (3.4-5.0) 02/26/22 Globulin 2.7 gm/dl (2.5-4.0) 02/26/22 Albumin/Globulin Ratio 1.5 (0.9-2) 02/26/22 PTT 24.3 Seconds (21.0-31.0) 02/26/22 INR 1.0 (0.9-1.1) 02/26/22 SARS-CoV-2, RNA, NAAT NEGATIVE (NEGATIVE) 02/26/22 Chest X-Ray 02/26/22 Code Status & VTE Plan Code Status FULL CODE VTE Prophylaxis Plan VTE Prophylaxis will be ordered: No Supervising Physician Co-Signing Physician Notes Patient is a 61-year-old male with history of diabetes mellitus, squamous cell carcinoma of the right lung, tobacco use disorder, S/P gastric bypass, gastric adenocarcinoma and other medical problems presents with history of hemoptysis since 1 day duration. Patient states having ongoing cough for the past several months and he admits to smoking currently. He also noted to have right calf pain few days ago which currently resolved. He denies any shortness of breath, chest pain, dizziness, nausea, abdominal pain, fever, chills. Blood work showed hemoglobin 13.7, hematocrit 39.5, platelet 219, INR 1.0, sodium 138, potassium 4.3, chloride 105, bicarbonate 28, BUN 10, creatinine 0.69, glucose 121, calcium 9.5. CTA chest showed bilateral segmental and subsegmental pulmonary emboli. Consolidative densities in the peripheral right lower lobe likely represents pulmonary infarcts. No evidence of right heart strain noted. Venous Doppler showed right lower extremity showed nonocclusive thrombus within the right popliteal vein with occlusive thrombus extending into the lesser saphenous vein. EKG showed normal sinus rhythm, bifascicular block, QTC 420. Physical Exam: Vitals signs as noted above General Appearance:Moderately built and nourished, no apparent distress Head: normocephalic, Atraumatic Eyes: normal inspection, EOMI Neck: supple, Trachea midline Respiratory/Chest: Right decreased breath sounds, CTA, No accessory muscle use Cardiovascular: S1, S2, No murmur Abdomen/GI:Soft, Non tender, Bowel sounds present, + multiple well-healed surgical scars, abdominal hernia Extremities/Musculoskeletal:normal inspection, no edema Neurologic/Psych:AAOX3, grossly no focal neurological deficits Skin: normal color, warm Acute bilateral PE Acute right lower extremity DVT Hemoptysis Suspected pulmonary infarct History of cancer Ongoing tobacco use Monitor H&H Hemoglobin at baseline currently Started on low-dose IV heparin Supplemental oxygen as needed Consider pulmonology evaluation if needed I personally reviewed the record. Patient is interviewed and examined at bedside. Patient's care is coordinated with Lydia Skaggs PA-C. Please refer to the documentation above for details of patient's presentation and for discussion of other issues.
--- NOTE | 2022-02-26 17:05 | History & Physical Report ---
Date of Service February 26, 2022 Assessment & Plan (1) Hemoptysis: (2) Pulmonary embolism: Plan This is a 61-year-old male who has a significant past medical history of T2DM, right lung squamous cell carcinoma status post chemotherapy and lobectomy in 2014, COPD, tobacco abuse, history of Ankita-en-Y, history of abscess near gastric pouch status post fistula creation, pigtail, status post stent placement with interval resolution of abscess, status post laparoscopic subtotal gastrectomy to remove a pyloric obstruction which was found to be invasive adenocarcinoma poorly differentiated currently on chemotherapy followed by Dr. Bobby, GERD, iron deficiency anemia, current stage III gastric adenocarcinoma who presents to ED secondary to hemoptysis x1 day. Hemoptysis Bilateral segmental and subsegmental pulmonary emboli Admit to telemetry Continue IV heparin, will defer transition to fpc agent to a.m. provider obtain echocardiogram r/o right heart strain monitor cbc consider pulm consult given infarcts and if persistent hemopytsis He is hemodynamically stable on room air obtain b/l venous doppler to r/o dvt given c/o calf pain Hx of R lung SCC s/p lobectomy Current stage [address] Bobby on xeloda Tobacco abuse encourage cessation nicotine patch ordered HTN continue lisinopril COPD continue trelegy, no acute exac Hx of T2Dm last a1c 5.2 06/2021 obtain a1c in a.m. controlled s/p ankita en y DVT ppx: IV Heparin Dispo: Tele FULL CODE PCP: Agatha Mckeon Pt was seen and examined in collaboration with Dr. Sanchez, please see addendum History of Present Illness Primary Care Provider: Tasha Salazar PA-C Allergies Allergy/AdvReac Type Severity Reaction Status Date / Time morphine AdvReac Headache Verified 02/26/22 16:01 Home Medications Medication Instructions Recorded Confirmed Type acetaminophen 500 mg tablet 1,000 mg PO Q8 PRN Pain 10/22/21 02/26/22 History (Tylenol Extra Strength) albuterol sulfate 90 mcg/actuation 1 puff inhalation Q4H PRN 10/22/21 02/26/22 History aerosol inhaler (Ventolin HFA) Shortness Of Breath famotidine 40 mg tablet 40 mg PO DAILY 10/22/21 02/26/22 History ipratropium 0.5 mg-albuterol 3 mg 3 ml inhalation Q6H PRN Shortness 10/22/21 02/26/22 History (2.5 mg base)/3 mL nebulization Of Breath soln ondansetron HCl 4 mg tablet 4 mg PO Q8H PRN Nausea 10/22/21 02/26/22 History capecitabine 500 mg tablet (Xeloda) 2,000 mg PO BID 11/11/21 02/26/22 History tramadol 50 mg tablet 50 mg PO Q6H PRN Pain 11/11/21 02/26/22 History bupropion HCl 100 mg tablet,12 hr 100 mg PO Q12H 11/24/21 02/26/22 History sustained-release (Wellbutrin SR) lisinopril 2.5 mg tablet 2.5 mg PO DAILY 11/24/21 02/26/22 History calcium carbonate 500 mg calcium 500 mg PO DAILY 02/26/22 02/26/22 History (1,250 mg) tablet cholecalciferol (vitamin D3) 25 50 mcg PO DAILY 02/26/22 02/26/22 History mcg (1,000 unit) tablet diphenhydramine 25 1 tab PO HS PRN Pain 02/26/22 02/26/22 History mg-acetaminophen 500 mg tablet (Acetaminophen PM) fluticasone fur. 100 mcg-umeclid 1 inh inhalation DAILY 02/26/22 02/26/22 History 62.5 mcg-vilant 25 mcg inhalat.powder (Trelegy Ellipta) loratadine 10 mg tablet (Allergy 10 mg PO DAILY 02/26/22 02/26/22 History Relief (loratadine)) multivitamin 1 tab PO DAILY 02/26/22 02/26/22 History simethicone 80 mg chewable tablet 80 mg PO BID PRN Gastric Reflux 02/26/22 02/26/22 History Past Med/Surg History Medical History Arthritis Chronic obstructive pulmonary disease rare rescue inhaler DJD (degenerative joint disease) Gastric cancer 09/04/21 Gastric fistula Gastric outlet obstruction GERD (gastroesophageal reflux disease) H/O diabetes mellitus diet controlled since weight loss/gastric bypass History of kidney stones Hx of cancer of lung s/p right middle and upper lobectomy 07/23/2015, + chemo Hx of sleep apnea no longer uses CPAP s/p UPPP done years ago (patient believes retest negative) Iron deficiency anemia Obesity Peripheral vascular disease Postoperative abscess Surgical History H/O endoscopy H/O left knee surgery History of carpal tunnel release of both wrists History of cataract surgery History of colonoscopy History of lobectomy of lung removal of upper and middle lobes right side - [facility] - 07/2015 History of total right knee replacement History of total shoulder replacement RIGHT Hx of gastric bypass 2000 [facility] Hx of hernia repair abdominal S/P partial gastrectomy Subtotal gastrectomy and ventral hernia repair on 09/04/21 Family History Mother , 79yo COPD (chronic obstructive pulmonary disease) Smoker Diabetes Father , 57yo Myocardial infarction Hx of CABG Cirrhosis of liver Social History Smoking Status: Current every day smoker Tobacco Type: Cigarettes Cigarettes Per Day: 20-30; Second Hand Exposure: Yes; Hx Alcohol Use: Yes Alcohol type: beer Hx Substance Use: No Preferred Language: Lithuanian Communication Ability: Effective Visual Impairment: No Limitations Hearing Ability: Normal Acid Adjuster Required: No Beliefs That Will Affect Care: None marital status: Current Living Situation: Family Current Living Situation Comment: LIVES WITH MOTHER current occupational status: unemployed How many Children do You have: 0 Feels Safe at Home: Yes caffeine: No during the past year weight has: decreased > 10 lbs Results & Data Results & Data ([facility]) Vital Signs (Past 12 Hours) Vital Signs Temp Pulse Resp BP Pulse Ox O2 Del Method 02/26/22 15:40 72 15 97 Room Air 02/26/22 15:30 70 23 97 Room Air 02/26/22 15:20 77 20 99 Room Air 02/26/22 15:10 74 18 99 Room Air 02/26/22 15:00 56 L 17 97 Room Air 02/26/22 14:50 61 17 98 Room Air 02/26/22 14:40 63 12 99 Room Air 02/26/22 10:38 36.0 C L 78 16 126/80 98 Room Air Code Status & VTE Plan VTE Prophylaxis Plan VTE Prophylaxis will be ordered: No
--- NOTE | 2022-02-26 18:37 | Ultrasound Report ---
BILATERAL LOWER EXTREMITY VENOUS DOPPLER HISTORY: Right calf pain. History of pulmonary embolus. Assess for DVT. COMPARISON STUDY: None. FINDINGS: The right common femoral, superficial femoral, anterior tibial, posterior tibial veins are patent. There is nonocclusive thrombus seen within the right popliteal vein with occlusive thrombus e xtending into the lesser saphenous vein. No DVT within the left lower extremity. IMPRESSION: 1. Right lower extremity deep and superficial vein thrombosis as described above. 2. No DVT within the left lower extremity. ACT 112: Negative or not required by law. Electronically signed by: Christian Kaye M.D. 02/26/2022 6:35 PM
[2022-02-26] MEDS ORDERED: ACETAMINOPHEN 325 MG TAB PO PRN (19:47)
[2022-02-26] MEDS ORDERED: ALUMINUM/MAGNESIUM SUSP 30 ML UDC PO PRN (19:47)
[2022-02-26] MEDS ORDERED: POLYETHYLENE (MIRALAX) 17 GM PACK PO PRN (19:47)
[2022-02-26] MEDS ORDERED: traMADol HCL 50 MG TABLET PO PRN (19:47)
[2022-02-26] MEDS ORDERED: MAGNESIUM HYDROXIDE SUSP 30 ML UDC PO PRN (19:47)
[2022-02-26] MEDS ORDERED: ONDANSETRON INJ 2 MG/ML 2 ML VIAL IV PRN (19:47)
[2022-02-26] MEDS ORDERED: ALBUT/IPRATROP 3MG/0.5MG NEB 3 ML VIAL INH PRN (19:47)
[2022-02-26] MEDS: CAPECITABINE 500 MG PO SCH (21:13)
[2022-02-26] MEDS: Heparin IV Adult Wt-Based Low-Dose WITH Bolus Protocol IV SCH ×2 (21:19)
[2022-02-26] MEDS: buPROPion SR 100 MG TABCR PO SCH (21:39)
[2022-02-26 22:02] LABS: Partial Thromboplastin Ratio 1.1; Partial Thromboplastin Time 29.2 Seconds (21.0-31.0)
[2022-02-27 00:08] LABS: Partial Thromboplastin Time 26.8 Seconds (21.0-31.0)
[2022-02-27] MEDS: Heparin IV Adult Wt-Based Low-Dose WITH Bolus Protocol IV SCH (01:09)
--- NOTE | 2022-02-27 05:54 | Electrocardiogram Report ---
Test Reason : Blood Pressure : / mmHG Vent. Rate : 073 BPM Atrial Rate : 073 BPM P-R Int : 144 ms QRS Dur : 126 ms QT Int : 382 ms P-R-T Axes : 072 -77 038 degrees QTc Int : 420 ms Normal sinus rhythm Right bundle branch block Left anterior fascicular block Bifascicular block Abnormal ECG When compared with ECG of 17-JUL-2021 09:16, Premature supraventricular complexes are no longer Present Left anterior fascicular block is now Present Confirmed by Dangelo Biggs ([id number]) on 02/27/2022 5:54:05 AM Referred By: Confirmed By:Dangelo Biggs
[2022-02-27 06:21] LABS: Hematocrit (blood only) 35.5 % (40.1-51.0); Hemoglobin 12.2 g/dl (14.0-18.0); Mean Corpuscular Hemoglobin 32.9 pg (25.0-34.0); Mean Corpuscular Hgb Conc 34.4 g/dL (32.0-36.0); Mean Corpuscular Volume 95.7 fL (80.0-100.0); Mean Platelet Volume 8.2 fL (9.4-12.4); Platelet Count 217 K/uL (130-400); RDW Coefficient of Variation 18.8 % (11.5-14.5); RDW Standard Deviation 65.2 fL (36.4-46.3); Red Blood Count 3.71 M/uL (4.63-6.08); White Blood Count 6.33 K/ul (4.8-10.8)
[2022-02-27 06:46] LABS: BUN Creatinine Ratio 12.9 (10-20); Creatinine Clr Calc Pharmacy 118.7 ml/min; Est GFR (African American) 125.8 ml/min; Est GFR (Non-African American) 108.6 ml/min; Magnesium 1.6 mg/dl (1.7-2.4); Potassium 3.9 mmol/L (3.5-5.1)
[2022-02-27 07:03] LABS: Partial Thromboplastin Ratio 1.4
[2022-02-27 07:46] LABS: Estimated Average Glucose 134 mg/dl; Hemoglobin A1C 6.3 % (4.5-5.6)
[2022-02-27] MEDS: buPROPion SR 100 MG TABCR PO SCH ×2 (08:49→19:27)
[2022-02-27] MEDS: MULTIVITAMIN TAB PO SCH (08:50)
[2022-02-27] MEDS: CHOLECALCIFEROL 1,000 UNITS 25 MCG TAB PO SCH (08:50)
[2022-02-27] MEDS: CAPECITABINE 500 MG PO SCH ×2 (08:50→17:17)
[2022-02-27] MEDS: lisinopril 2.5 MG TAB PO SCH (08:50)
[2022-02-27] MEDS: CALCIUM CARBONATE 1250MG TAB PO SCH (08:52)
[2022-02-27] MEDS: LORATADINE 10 MG TAB PO SCH (08:52)
[2022-02-27] MEDS: UMECLIDINIUM/VILANTEROL 62.5/25MCG 7 PUFFS/INHALER INH SCH (08:52)
[2022-02-27] MEDS: FAMOTIDINE 40 MG TABLET PO SCH (08:52)
[2022-02-27] MEDS: FLUTICASONE FUROATE 100MCG 14 PUFFS/INHALER INH SCH (08:53)
[2022-02-27] MEDS ORDERED: NON-FORMULARY MEDICATION (Fluticasone-Umeclidin-Vilanter [Trelegy Ellipta] 100-62.5-25 mcg INH SCH (09:00)
[2022-02-27] MEDS ORDERED: ENOXAPARIN 1 MG/KG SC SCH (09:45)
[2022-02-27] MEDS: ENOXAPARIN 80 MG/0.8 ML SYR SQ SCH ×2 (10:28→23:54)
[2022-02-27] MEDS: ALBUT/IPRATROP 3MG/0.5MG NEB 3 ML VIAL NEB SCH ×3 (10:56→23:48)
[2022-02-27] MEDS: NICOTINE 21 MG/24 HR TDSY TD SCH (11:23)
--- NOTE | 2022-02-27 11:47 | Hospitalist Progress Note ---
Date of Service February 27, 2022 Assessment & Plan (1) Hemoptysis: (2) Pulmonary embolism: Plan This is a 61-year-old male who has a significant past medical history of T2DM, right lung squamous cell carcinoma status post chemotherapy and lobectomy in 2014, COPD, tobacco abuse, history of Ankita-en-Y, history of abscess near gastric pouch status post fistula creation, pigtail, status post stent placement with interval resolution of abscess, status post laparoscopic subtotal gastrectomy to remove a pyloric obstruction which was found to be invasive adenocarcinoma poorly differentiated currently on chemotherapy followed by Dr. Bobby, GERD, iron deficiency anemia, current stage III gastric adenocarcinoma who presents to ED secondary to hemoptysis x1 day. Hemoptysis Bilateral segmental and subsegmental pulmonary emboli Right popliteal vein thrombosis Bilateral lower extremity venous duplex as above. CT angio results as above. He is in room air. Hemoglobin is slightly lower to 12.2 today compared to 13.7 on admission. Plan; Patient switched over to therapeutic Lovenox. aPTT was subtherapeutic on heparin. Plan to continue monitor him inpatient for hemoptysis. If he continues to do well; plan to discharge tomorrow a.m. on Eliquis. Communicated the plan with his sports umpire (Dr. Bobby). His echo is pending; will follow up. Hx of R lung SCC s/p lobectomy Current stage [address] Bobby on xeloda Tobacco abuse encourage cessation nicotine patch ordered HTN continue lisinopril COPD continue inhalers Occasional wheeze heard; started on duo nebs. Hypomagnesemia-we will give 2 g of IV magnesium. Hx of T2Dm last a1c 5.2 06/2021 obtain a1c in a.m. controlled s/p ankita en y DVT ppx: lovenox Dispo: Tele FULL CODE PCP: Agatha Mckeon Admission and Anticipated Discharge Date Admission Date: February 26, 2022 Subjective Patient seen and examined at bedside. Is saturating well in room air. He continues to have some hemoptysis but states that it is much improved compared to presentation. Review of Systems Review of Systems: All systems reviewed & are unremarkable except as noted in Subjective Physical Exam Physical Exam: General Appearance:Moderately built and nourished, no apparent distress Head: normocephalic, Atraumatic Eyes: normal inspection, EOMI Neck: supple, Trachea midline Respiratory/Chest: Right decreased breath sounds, CTA, No accessory muscle use. Occasional wheeze heard. Cardiovascular: S1, S2, No murmur Abdomen/GI:Soft, Non tender, Bowel sounds present, + multiple well-healed surgical scars, abdominal hernia Extremities/Musculoskeletal:normal inspection, no edema Neurologic/Psych:AAOX3, grossly no focal neurological deficits Skin: normal color, warm Results & Data Results & Data ([facility]) Vital Signs (Past 12 Hours) Vital Signs Temp Pulse Pulse Resp BP Pulse Ox O2 Del Method 02/27/22 11:38 36.9 C 02/27/22 08:00 36.9 C 02/27/22 11:00 76 16 02/27/22 10:00 77 18 96 02/27/22 10:00 111/72 02/27/22 09:00 85 17 94 02/27/22 08:00 90 26 H 95 02/27/22 08:00 124/88 02/27/22 07:00 65 12 02/27/22 07:00 112/72 02/27/22 06:00 64 12 02/27/22 06:00 116/74 02/27/22 05:00 61 16 02/27/22 05:00 118/73 02/27/22 10:59 74 16 96 Room Air 02/27/22 09:23 64 02/27/22 09:18 Room Air 02/27/22 04:00 64 10 L 98 02/27/22 04:00 118/74 02/27/22 03:00 67 14 02/27/22 03:00 122/78 02/27/22 02:01 62 16 96 02/27/22 02:01 125/93 02/27/22 02:00 61 20 95 02/27/22 01:00 69 17 96 02/27/22 01:00 133/88 02/27/22 00:00 68 14 96 02/27/22 00:00 98/50 L Laboratory Results Laboratory Results WBC 6.33 K/ul (4.8-10.8) 02/27/22 05:55 RBC 3.71 M/uL (4.63-6.08) L 02/27/22 05:55 Hgb 12.2 g/dl (14.0-18.0) L 02/27/22 05:55 Hct 35.5 % (40.1-51.0) L 02/27/22 05:55 MCV 95.7 fL (80.0-100.0) 02/27/22 05:55 MCH 32.9 pg (25.0-34.0) 02/27/22 05:55 MCHC 34.4 g/dL (32.0-36.0) 02/27/22 05:55 RDW Std Deviation 65.2 fL (36.4-46.3) H 02/27/22 05:55 RDW Coeff of Raissa 18.8 % (11.5-14.5) H 02/27/22 05:55 Plt Count 217 K/uL (130-400) 02/27/22 05:55 MPV 8.2 fL (9.4-12.4) L 02/27/22 05:55 Immature Gran % (Auto) 0.3 % 02/26/22 10:58 Neut % (Auto) 79.9 % 02/26/22 10:58 Lymph % (Auto) 7.3 % 02/26/22 10:58 [place] % (Auto) 11.2 % 02/26/22 10:58 Eos % (Auto) 1.1 % 02/26/22 10:58 Baso % (Auto) 0.2 % 02/26/22 10:58 Neut # (Auto) 7.50 K/uL (1.4-6.5) H 02/26/22 10:58 Lymph # (Auto) 0.69 K/uL (1.2-3.4) L 02/26/22 10:58 [place] # (Auto) 1.05 K/uL (0.24-0.82) H 02/26/22 10:58 Eos # (Auto) 0.10 K/uL (0-0.50) 02/26/22 10:58 Baso # (Auto) 0.02 K/uL (0-0.2) 02/26/22 10:58 Immature Gran # (Auto) 0.03 K/uL (0.00-0.02) H 02/26/22 10:58 PT 10.6 Seconds (9.0-12.0) 02/26/22 10:58 INR 1.0 (0.9-1.1) 02/26/22 10:58 APTT 39.0 Seconds (21.0-31.0) H 02/27/22 06:04 PTT Ratio 1.4 02/27/22 06:04 Sodium 138 mmol/L (136-145) 02/27/22 05:55 Potassium 3.9 mmol/L (3.5-5.1) 02/27/22 05:55 Chloride 105 mmol/L (98-107) 02/27/22 05:55 Carbon Dioxide 29 mmol/L (21-32) 02/27/22 05:55 Anion Gap 4 (3-11) 02/27/22 05:55 BUN 8 mg/dl (6-23) 02/27/22 05:55 Creatinine 0.62 mg/dl (0.6-1.4) 02/27/22 05:55 Est Cr Clr Drug Dosing 118.7 ml/min 02/27/22 05:55 Est GFR ( Amer) 125.8 ml/min 02/27/22 05:55 Est GFR (Non-Af Amer) 108.6 ml/min 02/27/22 05:55 BUN/Creatinine Ratio 12.9 (10-20) 02/27/22 05:55 Glucose 95 mg/dl (70-99(Fasting)) 02/27/22 05:55 Estimat Average Glucose 134 mg/dl 02/27/22 05:55 Hemoglobin A1c 6.3 % (4.5-5.6) H 02/27/22 05:55 Calcium 9.0 mg/dl (8.5-10.1) 02/27/22 05:55 Magnesium 1.6 mg/dl (1.7-2.4) L 02/27/22 05:55 Total Bilirubin 0.6 mg/dl (0.2-1.0) 02/26/22 10:58 AST 20 U/L (13-39) 02/26/22 10:58 ALT 12 U/L (7-52) 02/26/22 10:58 Alkaline Phosphatase 135 U/L (34-104) H 02/26/22 10:58 Total Protein 6.8 gm/dl (6.0-8.3) 02/26/22 10:58 Albumin 4.1 gm/dl (3.4-5.0) 02/26/22 10:58 Globulin 2.7 gm/dl (2.5-4.0) 02/26/22 10:58 Albumin/Globulin Ratio 1.5 (0.9-2) 02/26/22 10:58 Lipase 9 U/L (11-82) L 02/26/22 10:58 SARS-CoV-2, RNA, NAAT NEGATIVE (NEGATIVE) 02/26/22 14:39 Impressions Chest X-Ray 02/26/22 10:47 XR chest 1V portable CLINICAL HISTORY: coughing up blood TECHNIQUE: Single frontal radiograph of the chest was obtained. Comparison: Comparison is made to chest radiograph 07/17/2021 and CTA chest 09/13/2021 FINDINGS: Right shoulder arthroplasty is unchanged. The cardiomediastinal silhouette is normal. Stable prominence of the left hilum. No acute abnormality is seen. Postoperative changes of the right lung are stable. No evidence of pleural ef fusion or pneumothorax. IMPRESSION: No radiographic abnormality is seen. ACT 112: Negative or not required by law. Electronically signed by: Armando Granger M.D. 02/26/2022 11:27 AM Chest CTA 02/26/22 12:13 CT angio chest PE protocol CLINICAL HISTORY: PE TECHNIQUE: Multidetector row helical CT of the chest was performed with angiographic protocol. Coronal and sagittal reformations were obtained. Coronal and sagittal MIPS were obtained from the axial data set and were submitted for review. Automated dose lowering techniques and/or adjustment according to patient size were utilized for this exam. CT DOSE: 378.42 mGy.cm Comparison: Comparison is made to CT chest 10/03/2021 FINDINGS: Lungs and pleura: Consolidative opacities are seen in the peripheral left lung base. Patient is status post right upper lobectomy. Heart and pericardium: Unremarkable. No right heart strain is seen. Vessels: Pulmonary emboli are seen in segmental and subsegmental arteries in the left lower lobe and right lower lobe. Tortuosity of the right main pulmonary artery is incidentally noted. Mediastinum and chantell: Unremarkable. Chest wall and lower neck: Gynecomastia is noted bilaterally. Abdomen: Gastric bypass surgery changes are seen. Bones: Degenerative changes in the thoracic spine. Right shoulder reverse arthroplasty is seen. IMPRESSION: Bilateral segmental and subsegmental pulmonary emboli. Consolidative densities in the peripheral right lower lobe likely represent pulmonary infarcts. No evidence of right heart strain. ACT 112: Negative or not required by law. Electronically signed by: Armando Granger M.D. 02/26/2022 1:20 PM Venous Doppler Study 02/26/22 16:01 BILATERAL LOWER EXTREMITY VENOUS DOPPLER HISTORY: Right calf pain. History of pulmonary embolus. Assess for DVT. COMPARISON STUDY: None. FINDINGS: The right common femoral, superficial femoral, anterior tibial, posterior tibial veins are patent. There is nonocclusive thrombus seen within the right popliteal vein with occlusive thrombus extending into the lesser saphenous vein. No DVT within the left lower extremity. IMPRESSION: 1. Right lower extremity deep and superficial vein thrombosis as described above. 2. No DVT within the left lower extremity. ACT 112: Negative or not required by law. Electronically signed by: Christian Kaye M.D. 02/26/2022 6:35 PM
[2022-02-27] MEDS: MAGNESIUM SULFATE / D5W 1 GM/100 ML BAG IV SCH ×2 (12:36→14:13)
[2022-02-27 15:02] VITALS: TEMP 97.5
[2022-02-28 05:33] LABS: Basophils # (auto) 0.03 K/uL (0-0.2); Basophils % (auto) 0.5 %; Eosinophils # (auto) 0.09 K/uL (0-0.50); Eosinophils % (auto) 1.4 %; Hematocrit (blood only) 34.5 % (40.1-51.0); Hemoglobin 11.9 g/dl (14.0-18.0); Immature Granulocytes # (auto) 0.03 K/uL (0.00-0.02); Immature Granulocytes % (auto) 0.5 %; Lymphocytes # (auto) 0.93 K/uL (1.2-3.4); Mean Corpuscular Hemoglobin 33.1 pg (25.0-34.0); Mean Corpuscular Hgb Conc 34.5 g/dL (32.0-36.0); Mean Corpuscular Volume 96.1 fL (80.0-100.0); Monocytes # (auto) 0.86 K/uL (0.24-0.82); Monocytes % (auto) 12.9 %; Neutrophils # (auto) 4.71 K/uL (1.4-6.5); Neutrophils % (auto) 70.7 %; Platelet Count 222 K/uL (130-400); RDW Coefficient of Variation 18.6 % (11.5-14.5); RDW Standard Deviation 64.6 fL (36.4-46.3); Red Blood Count 3.59 M/uL (4.63-6.08); White Blood Count 6.65 K/ul (4.8-10.8)
[2022-02-28 05:58] LABS: Albumin Globulin Ratio 1.7 (0.9-2); Albumin Level 3.7 gm/dl (3.4-5.0); BUN Creatinine Ratio 14.3 (10-20); Bilirubin,Total 0.6 mg/dl (0.2-1.0); Calcium 8.7 mg/dl (8.5-10.1); Creatinine Clr Calc Pharmacy 105.1 ml/min; Est GFR (African American) 119.7 ml/min; Est GFR (Non-African American) 103.3 ml/min; Globulin 2.2 gm/dl (2.5-4.0); Potassium 3.9 mmol/L (3.5-5.1); Total Protein 5.9 gm/dl (6.0-8.3)
[2022-02-28] MEDS: ALBUT/IPRATROP 3MG/0.5MG NEB 3 ML VIAL NEB SCH (07:12)
[2022-02-28] MEDS: FLUTICASONE FUROATE 100MCG 14 PUFFS/INHALER INH SCH (08:34)
[2022-02-28] MEDS: lisinopril 2.5 MG TAB PO SCH (08:34)
[2022-02-28] MEDS: buPROPion SR 100 MG TABCR PO SCH (08:34)
[2022-02-28] MEDS: LORATADINE 10 MG TAB PO SCH (08:35)
[2022-02-28] MEDS: CHOLECALCIFEROL 1,000 UNITS 25 MCG TAB PO SCH (08:35)
[2022-02-28] MEDS: CALCIUM CARBONATE 1250MG TAB PO SCH (08:35)
[2022-02-28] MEDS: FAMOTIDINE 40 MG TABLET PO SCH (08:35)
[2022-02-28] MEDS: NICOTINE 21 MG/24 HR TDSY TD SCH (08:36)
[2022-02-28] MEDS: MULTIVITAMIN TAB PO SCH (08:38)
[2022-02-28] MEDS: UMECLIDINIUM/VILANTEROL 62.5/25MCG 7 PUFFS/INHALER INH SCH (08:38)
[2022-02-28] MEDS: CAPECITABINE 500 MG PO SCH (09:11)
[2022-02-28] MEDS: ENOXAPARIN 80 MG/0.8 ML SYR SQ SCH (09:11)
[2022-02-28 09:51] VITALS: BP 160/85
[2022-02-28 10:21] VITALS: O2SAT 95
[2022-02-28 10:23] VITALS: PULSE 79
--- NOTE | 2022-02-28 16:34 | Discharge Summary ---
Date of Service February 28, 2022 Admission HPI Per Admitting Provider This is a 61-year-old male who has a significant past medical history of T2DM, right lung squamous cell carcinoma status post chemotherapy and lobectomy in 2015, COPD, tobacco abuse, history of Josephine-en-Y, history of abscess near gastric pouch status post fistula creation, pigtail, status post stent placement with interval resolution of abscess, status post laparoscopic subtotal gastrectomy to remove a pyloric obstruction which was found to be invasive adenocarcinoma poorly differentiated currently on chemotherapy followed by Dr. Bobby, GERD, iron deficiency anemia, current stage III gastric adenocarcinoma who presents to ED secondary to hemoptysis x1 day. He admits to having a cough for the past several months. He is a current smoker. Over the past 24 hours he has been coughing up blood, described as small dime size clots. Due to this he presented to ER for further evaluation. He also c/o R calf pain a few days ago but no swelling or redness. He denies any patel chest pain, shortness of breath or wheezing. He denies any lightheadedness, dizziness, fever, chills, sweats, nausea, vomiting, abdominal pain, changes bowel or urinary habits. He has never anything like this before. CTA of chest revealed bilateral segmental and subsegmental pulmonary emboli, consolidative densities in the peripheral right lower lobe likely represents pulmonary infarcts. No evidence of right heart strain. He was started on IV heparin. He remained hemodynamically stable in ED Admission Exam Per Admitting Provider Vitals signs as noted above General Appearance:Moderately built and nourished, no apparent distress Head: normocephalic, Atraumatic Eyes: normal inspection, EOMI Neck: supple, Trachea midline Respiratory/Chest: Right decreased breath sounds, CTA, No accessory muscle use Cardiovascular: S1, S2, No murmur Abdomen/GI:Soft, Non tender, Bowel sounds present, + multiple well-healed surgical scars, abdominal hernia Extremities/Musculoskeletal:normal inspection, no edema Neurologic/Psych:AAOX3, grossly no focal neurological deficits Skin: normal color, warm Principal Diagnosis 1) Acute Right popliteal DVT 2) Acute Bilateral PE with infraction Discharge Exam General Appearance:Moderately built and nourished, no apparent distress Head: normocephalic, Atraumatic Eyes: normal inspection, EOMI Neck: supple, Trachea midline Respiratory/Chest: Right decreased breath sounds, CTA, No accessory muscle use. Occasional wheeze heard. Cardiovascular: S1, S2, No murmur Abdomen/GI:Soft, Non tender, Bowel sounds present, + multiple well-healed surgical scars, abdominal hernia Extremities/Musculoskeletal:normal inspection, no edema Neurologic/Psych:AAOX3, grossly no focal neurological deficits Skin: normal color, warm Discharge Data Allergies Allergy/AdvReac Type Severity Reaction Status Date / Time morphine AdvReac Headache Verified 02/26/22 16:01 Consultations 02/26/22 13:42 ED Decision to Admit Stat Ordered Studies 02/26/22 12:13 CT angio chest PE protocol Stat 02/26/22 16:01 US venous doppler LE Stat Hospital Course (1) Hemoptysis: (2) Acute deep vein thrombosis (DVT): (3) Acute pulmonary embolism: Plan Patient is a 61-year-old male who has a significant past medical history of T2DM, right lung squamous cell carcinoma status post chemotherapy and lobectomy in 2014, COPD, tobacco abuse, history of Josephine-en-Y, history of abscess near gastric pouch status post fistula creation, pigtail, status post stent placement with interval resolution of abscess, status post laparoscopic subtotal gastrecto my to remove a pyloric obstruction which was found to be invasive adenocarcinoma poorly differentiated currently on chemotherapy followed by Dr. Bobby, GERD, iron deficiency anemia, current stage III gastric adenocarcinoma presented to the ED with hemoptysis for [address] angio chest revealed bilateral segmental and subsegmental PE with pulmonary infarction in right lower lobe. Venous duplex showed right lower extremity deep and superficial vein thrombosis. Patient was admitted to telemetry for further care and monitoring. He was started on heparin drip and switched to Lovenox. He was in room air throughout the hospitalization. Echo did not show any signs of right ventricular strain. Patient's hemoptysis resolved over the course of the stay. He was discharged on Eliquis. Instruction was given to him regarding the loading dose and maintenance dose of the Eliquis. Communication was done with his oncologist regarding the plan. He was instructed to follow-up with his PCP and onc ologist/micro lab analyst. Total Time Total Time Spent Total Time Spent (In Minutes): 35 Total Time Includes: Examination of the Patient, Discharge Planning, Medication Reconciliation, Communication With Other Providers and Other Discharge Plan Discharge Items Patient Disposition: Home - Self-Care Reason For Visit: PE Discharge Diagnosis: Hemoptysis Bilateral segmental and subsegmental pulmonary emboli Acute Right popliteal DVT Activity: Resume your previous activity Non-emergency contact: Primary Care Provider and Oncologist Call non-emergency contact if: you have any medication questions and your symptoms worsen Follow-up/Referrals: Tasha Salazar PA-C [Primary Care Provider] - (Date & Time 03/05/2022 9:20 AM Provider Barrett Liu PA-C Department General Internal Medicine [facility] ) Diet: Regular Addtl Attending Provider Instructions: Please take Eliquis(Blood thinner)as instructed below: 1) Take 2 tablets(10mg) twice daily starting tonight for 7 days(14 doses) 2) Take 1 tablet(5mg) twice daily then after Please follow up with your Oncologist( Norma). Please follow up with your PCP and Lung doctor Pending Studies at Discharge: No Stand-Alone Forms: My [employer], Smoking Cessation Medications and DC Order Prescriptions: New Eliquis 5 mg tablet 5 mg PO .as instructed Qty: 74 0RF Rx Instructions: Take 2 tablets ( 10mg) twice daily for 7 days. Then, 1 tablet (5mg) twice daily for next 30 days. Continued ipratropium-albuterol 0.5 mg-3 mg(2.5 mg base)/3 mL solution for nebulization 3 ml inhalation Q6H PRN (Reason: Shortness Of Breath) famotidine 40 mg tablet 40 mg PO DAILY ondansetron HCl 4 mg tablet 4 mg PO Q8H PRN (Reason: Nausea) tramadol 50 mg tablet 50 mg PO Q6H PRN (Reason: Pain) capecitabine [Xeloda] 500 mg tablet 2,000 mg PO BID lisinopril 2.5 mg tablet 2.5 mg PO DAILY bupropion HCl [Wellbutrin SR] 100 mg tablet sustained-release 12 hr 100 mg PO Q12H albuterol sulfate [Ventolin HFA] 90 mcg/actuation HFA aerosol inhaler 1 puff INHALATION Q4H PRN (Reason: Shortness Of Breath) acetaminophen [Tylenol Extra Strength] 500 mg tablet 1,000 mg PO Q8 PRN (Reason: Pain) Rx Instructions: Takes 1 regular ES Tylenol & 1 rapid release cap diphenhydramine-acetaminophen [Acetaminophen PM] 25-500 mg Tablet 1 tab PO HS PRN (Reason: Pain) cholecalciferol (vitamin D3) 25 mcg (1,000 unit) Tablet 50 mcg PO DAILY calcium carbonate 500 mg calcium (1,250 mg) Tablet 500 mg PO DAILY loratadine [Allergy Relief (loratadine)] 10 mg Tablet 10 mg PO DAILY multivitamin Tablet 1 tab PO DAILY simethicone 80 mg Tablet,Chewable 80 mg PO BID PRN (Reason: Gastric Reflux) Trelegy Ellipta 100-62.5-25 mcg Blister With Device 1 inh INHALATION DAILY Discharge Orders: Discharge Order (Routine); Ordered 02/28/22 Ordered By: Collins Calvin/Other Patient Handouts: A1C Admission Data Admit Date/Time: 02/26/22 15:00 Attending Provider: Collins Snowden Admit Provider: Gerardo Sanchez Primary Care Provider: Tasha Salazar Other Providers: Gerardo Sanchez Other Interventions: Discharge Summary Assessment (RN) Last Done: 02/28/22 10:22
== END 2022-02-28 10:05 | disposition home or self-care (01) | DRG 299 ==
LOC: ED 10:03 → SUATTDRO 15:00 → EDINP 15:00 → 1E 19:40